=== PATIENT | female | born 1970 | race Caucasian/White ===

== ENCOUNTER → 2020-04-02 09:59 | Outpatient (BNVA) | payer MEDICAID, SELFPAY | PROVIDERS: PCP Internal Medicine; Visit Provider Urology | DX: N39.41 Urge incontinence (principal) | CPT/HCPCS: 51798; 99202 ==

== ENCOUNTER 2020-07-26 19:45 | Emergency (ER) | payer OTHER, SELFPAY ==
--- NOTE | ~2020-07-26 | US_ITS ---
EXAMINATION: US ABDOMEN COMPLETE CLINICAL INFORMATION: Right upper quadrant pain. COMPARISON: None TECHNIQUE: Real-time imaging of the abdominal viscera. FINDINGS: PANCREAS: Obscured by overlying bowel gas ABDOMINAL AORTA: The proximal, mid, and distal segments are normal in caliber. INFERIOR VENA CAVA: Visualized portions are normal. LIVER: Normal. The liver is normal in size. The liver contour is normal. Parenchymal echogenicity is normal. No focal hepatic lesion. There is no intrahepatic biliary duct dilatation seen. GALLBLADDER: Normal. The gallbladder is physiologically distended without evidence of stones, sludge, polyps, wall thickening or pericholecystic fluid. COMMON BILE DUCT: Normal in caliber measuring 0.2 cm in diameter. RIGHT KIDNEY: Normal. No hydronephrosis. No renal calculi or focal parenchymal lesions. The kidney measures 10.1 cm in maximum dimension. LEFT KIDNEY: Normal. No hydronephrosis. No renal calculi or focal parenchymal lesions. The kidney measures 9.3 cm in maximum dimension. SPLEEN: Normal. The spleen measures 8.1 cm in maximum dimension. FREE FLUID: None. US/US abdomen complete IMPRESSION: Unremarkable abdominal ultrasound
[2020-07-26 19:58] VITALS: BP 120/71; PULSE 74; RESP 18; TEMP 36.6; O2SAT 98; BMI 20.9
--- NOTE | 2020-07-26 20:54 | ED.NAVMDI ---
HPI - Nausea/Vomiting/Diarrhea General Chief complaint: Nausea/Vomiting/Diarrhea Stated complaint: nausea vomiting mild chest pain Time Seen by Provider: 07/26/20 20:54 Source: patient and EMS Mode of arrival: EMS Limitations: no limitations History of Present Illness MD elicited complaint: nausea, vomiting and abdominal pain Onset (ago): day(s) (started Sunday) Associated nausea: Yes Associated abdominal pain: Yes Location of pain: epigastric and RUQ Pain consistency: intermittent Severity: moderate Exacerbating factors: eating Relieving factors: none Context: other (started after eating greasy foods) Associated symptoms: loss of appetite, malaise and nausea/vomiting Related Data Previous Rx's Medication Instructions Recorded oxybutynin chloride 10 mg 10 mg PO DAILY #30 tab 04/02/20 tablet,extended release 24 hr famotidine [Pepcid] 20 mg PO DAILY PRN #30 tab 07/26/20 ondansetron 4 mg PO Q8H PRN #20 tab 07/26/20 Allergies Allergy/AdvReac Type Severity Reaction Status Date / Time aspirin [ASPIRIN] Allergy Unknown UNKNOWN Verified 05/24/20 10:20 ibuprofen [IBUPROFEN] Allergy Unknown NAUSEA & Verified 05/24/20 10:20 VOMITING citalopram AdvReac Unknown sleepiness Verified 05/24/20 10:20 Review of Systems Review of Systems: Constitutional : No Weight loss, No Fever, No Chills ENT/Mouth : No sore throat, No Rhinorrhea Eyes: No Swelling, No Redness Cardiovascular : No Chest Pain, No SOB, NoEdema Respiratory : No Cough, No Sputum, No Wheezing Gastrointestinal : Positive Nausea, Positive Vomiting, no Diarrhea, positive abdominal Pain, No Hematochezia, No Melena Genitourinary : No Dysuria, No Urinary Frequency, No Hematuria, No Urgency Musculoskeletal : No joint pain, No Myalgias, No Joint Swelling Skin : No Skin Lesions, No rash Neuro : No Weakness, No Numbness, No Dizziness, No Headache Psych : No Anxiety/Panic, No Depression Heme/Lymph: No Bruising, No Lymphadenopathy Endocrine : No Polyuria, No Polydipsia All other systems reviewed and are negative. Gastrointestinal: Gastrointestinal: Reports nausea PMFSH Past Medical History Attestation statement: The following information was validated with the patient. Medical History Anxiety Asthma Depression History of seizures IgA nephropathy Kidney disease Lumbar facet arthropathy Mental disability Urge incontinence Urgency of micturition Surgical History S/P excision of fibroadenoma of breast Family History Family History (Updated 05/24/20 @ 10:23 by Stan Mariee MD) Father No problems noted. Mother Hypertension Stroke Social History Social History Alcohol intake: never Smoking Status: Never smoker Advance Directives: No Advance Directives Information Provided: Yes Patient : No Physical Exam Vital Signs: Vital Signs: Last Vital Signs Temp 97.6 F 07/26/20 21:19 Pulse 63 07/26/20 21:19 Resp 20 07/26/20 21:19 BP 115/62 07/26/20 21:19 Pulse Ox 97 07/26/20 21:19 Body Mass Index 20.9 Appearance: Alert. Oriented X3. No acute distress. Eyes: Pupils equal, round and reactive to light. ENT: Pharynx normal. Neck: Normal inspection. Neck supple. CVS: Normal heart rate and rhythm. Pulses normal. Respiratory: No respiratory distress. Breath sounds normal. Abdomen: Soft and mild epigastric and RUQ ttp no rebound or guarding Skin: Skin warm and dry. Normal skin color. Normal skin turgor. Extremities: No lower extremity edema. No calf ttp Neuro: Oriented X 3. No motor deficit. No sensory deficit. Course Course Course Narrative: no WBC count, repeat abdominal exam benign, no RLQ pain on recheck currently tolerating julia elkin and crackers denies lower abdominal pain, back pain or urinary symptoms MDM - Nausea/Vomiting/Diarrhea MDM Narrative Medical decision making narrative: 49 yo feamle with hx of developmental delays, asthma, seizures here with 3 days of n/v and upper abdominal pain after eating greasy foods at this time will need labs, EKG, IVF, IV zofran/pepcid, US to evaluate GB dispo per results and findings. Lab Data Result diagrams: 07/26/20 21:28 07/26/20 21:28 Labs: Lab Results 07/26/20 07/26/20 07/26/20 Range/Units 21:28 21:28 21:28 WBC 9.1 (4.8-10.8) X10*3/uL RBC 4.67 (4.20-5.50) X10*6/uL Hgb 13.1 (12.0-16.0) g/dl Hct 40.7 (37-47) % MCV 87.2 (80-98) fL MCH 28.1 (27.0-33.0) pg MCHC 32.2 (31.0-35.0) g/dl RDW 13.2 (11.0-16.0) % Plt Count 264 (160-400) X10*3/uL MPV 9.4 (9.4-12.3) fL Immature Gran % (Auto) 0.3 (0.0-0.4) % Neut % (Auto) 81.0 H (45-73) % Lymph % (Auto) 13.1 L (20-40) % [place] % (Auto) 5.3 (2-11) % Eos % (Auto) 0.1 (0-4) % Baso % (Auto) 0.2 (0-2) % Lymph # (Auto) 1.2 (1.2-4.9) X10*3/uL [place] # (Auto) 0.5 (0.1-1.2) X10*3/uL Eos # (Auto) 0.0 (0.0-0.4) X10*3/uL Baso # (Auto) 0.0 (0.0-0.2) X10*3/uL Abs Immat Gran (auto) 0.03 (0.00-0.03) X10*3/uL Absolute Neuts (auto) 7.4 (2.0-8.3) X10*3/uL Absolute Nucleated RBC 0.000 (0.0-0.012) X10*3/uL Nucleated RBC % (auto) 0.0 (0.0-0.2) /100WBC Hold Blue Top SEE NOTE Sodium 140 (135-145) mmol/L Potassium 5.2 H (3.3-5.1) mmol/L Chloride 104 (96-108) mmol/L Carbon Dioxide 27 (22-29) mmol/L Anion Gap 14 (12-20) BUN 22 H (9-16) mg/dL Creatinine 0.73 (0.5-1.4) mg/dL Estim Creat Clear Calc 88.6 Estimated GFR > 60 Random Glucose 102 (60-115) mg/dL Calcium 9.9 (8.4-10.2) mg/dL Magnesium 2.1 (1.6-2.6) mg/dL Total Bilirubin 0.6 (0.0-1.0) mg/dL Direct Bilirubin 0.2 (0.0-0.5) mg/dL AST 15 (5-31) U/L ALT 12 (0-31) U/L Alkaline Phosphatase 59 (39-117) U/L Troponin I High Sens (<3.5-17.0) ng/L C-Reactive Protein 0.03 (< or = 0.50) mg/dL Total Protein 7.6 (6.5-8.0) g/dL Albumin 4.5 (3.5-5.0) g/dL Lipase 21 (8-78) U/L COVID-19 ([facility]) (Negative) COVID-19 Clin Com 07/26/20 07/26/20 Range/Units 21:28 21:28 WBC (4.8-10.8) X10*3/uL RBC (4.20-5.50) X10*6/uL Hgb (12.0-16.0) g/dl Hct (37-47) % MCV (80-98) fL MCH (27.0-33.0) pg MCHC (31.0-35.0) g/dl RDW (11.0-16.0) % Plt Count (160-400) X10*3/uL MPV (9.4-12.3) fL Immature Gran % (Auto) (0.0-0.4) % Neut % (Auto) (45-73) % Lymph % (Auto) (20-40) % [place] % (Auto) (2-11) % Eos % (Auto) (0-4) % Baso % (Auto) (0-2) % Lymph # (Auto) (1.2-4.9) X10*3/uL [place] # (Auto) (0.1-1.2) X10*3/uL Eos # (Auto) (0.0-0.4) X10*3/uL Baso # (Auto) (0.0-0.2) X10*3/uL Abs Immat Gran (auto) (0.00-0.03) X10*3/uL Absolute Neuts (auto) (2.0-8.3) X10*3/uL Absolute Nucleated RBC (0.0-0.012) X10*3/uL Nucleated RBC % (auto) (0.0-0.2) /100WBC Hold Blue Top Sodium (135-145) mmol/L Potassium (3.3-5.1) mmol/L Chloride (96-108) mmol/L Carbon Dioxide (22-29) mmol/L Anion Gap (12-20) BUN (9-16) mg/dL Creatinine (0.5-1.4) mg/dL Estim Creat Clear Calc Estimated GFR Random Glucose (60-115) mg/dL Calcium (8.4-10.2) mg/dL Magnesium (1.6-2.6) mg/dL Total Bilirubin (0.0-1.0) mg/dL Direct Bilirubin (0.0-0.5) mg/dL AST (5-31) U/L ALT (0-31) U/L Alkaline Phosphatase (39-117) U/L Troponin I High Sens < 3.5 (<3.5-17.0) ng/L C-Reactive Protein (< or = 0.50) mg/dL Total Protein (6.5-8.0) g/dL Albumin (3.5-5.0) g/dL Lipase (8-78) U/L COVID-19 ([facility]) Negative (Negative) COVID-19 Clin Com See Note ECG Data Attestation: I personally reviewed and interpreted this ECG as follows: ECG interpretation date: 07/26/20 ECG interpretation time: 21:34 Interpretation: Rate: 64 Rhythm: NSR [place]: normal Normal P waves. Normal [place]. Normal QRS complex. ST T wave : normal no [place] qTC: normal prior studies: normal no acute ischemia The study has been interpreted contemporaneously by me. . Discharge Plan Discharge Clinical Impression: Vomiting Qualifiers: Vomiting type: unspecified Vomiting Intractability: non-intractable Nausea presence: with nausea Qualified Code(s): R11.2 - Nausea with vomiting, unspecified Abdominal pain Qualifiers: Abdominal location: epigastric Qualified Code(s): R10.13 - Epigastric pain Patient Disposition: Home, Self-Care Instructions: Acute Nausea and Vomiting (ED), Abdominal Pain (ED) Additional Instructions: return to ED for any worsening symptoms or concerns Prescriptions: New famotidine [Pepcid] 20 mg tablet 20 mg PO DAILY PRN (Reason: abdominal discomfort) Qty: 30 RF: 0 ondansetron 4 mg tablet,disintegrating 4 mg PO Q8H PRN (Reason: nausea and vomiting) Qty: 20 RF: 0 No Action oxybutynin chloride 10 mg tablet extended release 24hr 10 mg PO DAILY Qty: 30 RF: 6 Referrals: Brisa Ackerman MD [Primary Care Provider] - 2 days (if not better) Stand Alone Forms: Work/School Release
--- NOTE | 2020-07-26 21:03 | ECG_ITS ---
Test Reason : VOMITING Blood Pressure : / mmHG Vent. Rate : 064 BPM Atrial Rate : 064 BPM P-R Int : 126 ms QRS Dur : 078 ms QT Int : 408 ms P-R-T Axes : 035 034 030 degrees QTc Int : 420 ms Sinus rhythm with Premature atrial complexes Otherwise normal ECG When compared with ECG of 24-SEP-2016 20:52, Premature atrial complexes are now Present T wave inversion no longer evident in Anterior leads Referred By: Barby Hernandez Electronically Signed By:DESMOND CORRALES MD
[2020-07-26 21:19] VITALS: BP 115/62; PULSE 63; RESP 20; TEMP 36.4; O2SAT 97
[2020-07-26] MEDS: 0.9 % Sodium Chloride 1,000 ML 999 ML IVCONT (21:27)
[2020-07-26 21:32] LABS: MANUAL DIFF FLAG NO
[2020-07-26 21:34] LABS: Basophils Percent Auto 0.2 % (0-2); Eosinophils Percent Auto 0.1 % (0-4); Hematocrit 40.7 % (37-47); Hemoglobin 13.1 g/dl (12.0-16.0); Imm Gran Abs Auto 0.03 X10*3/uL (0.00-0.03); Imm Gran Pct Auto 0.3 % (0.0-0.4); Lymphocytes Absolute Auto 1.2 X10*3/uL (1.2-4.9); Lymphocytes Percent Auto 13.1 % (20-40); Mean Corpuscular HGB Conc 32.2 g/dl (31.0-35.0); Mean Corpuscular Hemoglobin 28.1 pg (27.0-33.0); Mean Corpuscular Volume 87.2 fL (80-98); Mean Platelet Volume 9.4 fL (9.4-12.3); Monocytes Absolute Auto 0.5 X10*3/uL (0.1-1.2); Monocytes Percent Auto 5.3 % (2-11); Neutrophils Absolute Auto 7.4 X10*3/uL (2.0-8.3); Platelet Count 264 X10*3/uL (160-400); Red Blood Count 4.67 X10*6/uL (4.20-5.50); Red Cell Distribution Width 13.2 % (11.0-16.0); White Blood Count 9.1 X10*3/uL (4.8-10.8)
[2020-07-26 21:50] LABS: COVID-19 Test Negative (Negative); IDNOW Serial# 9DD0AD1C
[2020-07-26] MEDS: ondansetron HCL 4 MG/2 ML VIAL IVPUSH (22:02)
[2020-07-26] MEDS: Famotidine/PF 20 MG/2 ML VIAL IVPUSH (22:03)
[2020-07-26 22:09] LABS: Alanine Aminotransferase 12 U/L (0-31); Albumin Level 4.5 g/dL (3.5-5.0); Alkaline Phosphatase 59 U/L (39-117); Anion Gap 14 (12-20); Aspartate Amino Transferase 15 U/L (5-31); Bilirubin Direct 0.2 mg/dL (0.0-0.5); Bilirubin Total 0.6 mg/dL (0.0-1.0); Blood Urea Nitrogen 22 mg/dL (9-16); C Reactive Protein 0.03 mg/dL (< or = 0.50); Calcium 9.9 mg/dL (8.4-10.2); Carbon Dioxide 27 mmol/L (22-29); Chloride 104 mmol/L (96-108); Creatinine Clr Calc Pharmacy 88.6; Estimated Glomerular Filt Rate > 60; Glucose Random 102 mg/dL (60-115); Lipase 21 U/L (8-78); Magnesium 2.1 mg/dL (1.6-2.6); Potassium 5.2 mmol/L (3.3-5.1); Sodium 140 mmol/L (135-145); Total Protein 7.6 g/dL (6.5-8.0)
[2020-07-26 22:10] LABS: Troponin-I High Sensitivity < 3.5 ng/L (<3.5-17.0)
--- NOTE | 2020-07-26 23:24 | PC.NURSE ---
late entry. pt has been comfortable for most of ed visit. abd was always nontender. no vomiting. moist mm.
== END 2020-07-26 23:25 | disposition home or self-care (01) ==
PROVIDERS: Emergency Provider Emergency Medicine; PCP Internal Medicine
DX: R11.2 Nausea with vomiting, unspecified (principal); R10.13 Epigastric pain; R07.9 Chest pain, unspecified; Z20.822 Contact with and (suspected) exposure to COVID-19
CPT/HCPCS: 36415; 76700; 80048; 80076; 83690; 83735; 84484; 85025; 86140; 87635; 93005; 96361; 96374; 96375; 99284; J2405

== ENCOUNTER 2020-11-09 16:17 | Emergency (ER) | payer OTHER, SELFPAY ==
[2020-11-09 16:19] VITALS: BP 123/85; PULSE 106; RESP 16; TEMP 36.3; O2SAT 98; BMI 27.4
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
[2020-11-09] MEDS: cephALEXin 500 MG CAPSULE PO (18:34)
[2020-11-09] MEDS: Silver Sulfadiazine 1 % Cream 20 GM TUBE 1 APPL TOPICAL (18:34)
[2020-11-09] MEDS: Diphth,Pertus(ACell),Tet Adult 0.5 ML SYRINGE IM (18:34)
== END 2020-11-09 18:45 | disposition home or self-care (01) ==
PROVIDERS: Emergency Provider Emergency Medicine; PCP Internal Medicine
DX: T24.201A Burn of second degree of unspecified site of right lower limb, except ankle and foot, initial encounter (principal); T31.0 Burns involving less than 10% of body surface; X17.XXXA Contact with hot engines, machinery and tools, initial encounter; Y93.89 Activity, other specified; Y92.410 Unspecified street and highway as the place of occurrence of the external cause; Y99.9 Unspecified external cause status
CPT/HCPCS: 90471; 90715; 99284

== ENCOUNTER 2021-06-22 08:16 | Emergency (ER) | payer MEDICAID, SELFPAY ==
[2021-06-22 08:20] VITALS: BP 126/66; PULSE 94; RESP 16; TEMP 36.1; O2SAT 98; BMI 25.8
--- NOTE | 2021-06-22 08:25 | ED.BACK ---
HPI - Back Pain/Injury General Chief Complaint: Back Pain/Injury Stated Complaint: Lower back pain Time Seen by Provider: 06/22/21 08:24 Source: patient Mode of arrival: ambulatory Limitations: no limitations History of Present Illness MD elicited complaint: back pain and back injury Pertinent past history: prior back pain Onset (ago): day(s) (2) Timing: constant Severity: mild Similar Symptoms Previously: Yes Quality: dull and aching Location: lumbar spine Radiation: none Relieving factors: movement Context: trauma (slipped and fell forward taking out the trash) Associated symptoms: denies other symptoms Treatments prior to arrival: cold therapy, heat therapy, acetaminophen and other medications Work related injury: No Related Data Previous Rx's Medication Instructions Recorded oxybutynin chloride 10 mg 10 mg PO DAILY #30 tab 04/02/20 tablet,extended release 24 hr famotidine 20 mg tablet (Pepcid) 20 mg PO DAILY PRN #30 tab 07/26/20 ondansetron 4 mg disintegrating 4 mg PO Q8H PRN #20 tab 07/26/20 tablet acetaminophen 500 mg tablet 1,000 mg PO QID PRN #30 tab 11/09/20 cephalexin 500 mg tablet 500 mg PO QID 7 Days #28 tab 11/09/20 oxycodone 5 mg tablet 5 mg PO Q6H PRN #10 tab 11/09/20 silver sulfadiazine 1 % topical 1 appl TOPICAL BID 7 Days #50 g 11/09/20 cream (Silvadene) hydrocodone 5 mg-acetaminophen 325 1 tab PO Q6H PRN #8 tab 06/22/21 mg tablet Allergies Allergy/AdvReac Type Severity Reaction Status Date / Time aspirin [ASPIRIN] Allergy Unknown UNKNOWN Verified 11/09/20 17:27 ibuprofen [IBUPROFEN] Allergy Unknown NAUSEA & Verified 11/09/20 17:27 VOMITING citalopram AdvReac Unknown sleepiness Verified 11/09/20 17:27 Review of Systems Review of Systems: Constitutional : No Weight loss, No Fever, No Chills, ENT/Mouth : No Hearing loss, No Ear Pain, No Nasal Congestion, No Sinus Pain, No Hoarseness, No sore throat, No Rhinorrhea, No Swallowing Difficulty Cardiovascular : No Chest Pain, No SOB Respiratory : No Cough, No Dyspnea Gastrointestinal : No Nausea, No Vomiting, No Diarrhea, No abdominal Pain, No Hematochezia, No Melena Genitourinary : No Dysuria, No Urinary Frequency, No Hematuria, No Urinary Incontinence, Musculoskeletal : positive back pain Skin : No Skin Lesions, No rash Neuro : No Weakness, No Numbness, No Paresthesias, no loss of bowel or bladder incontinence, no saddle anesthesia [facility] Past Medical History Attestation statement: The following information was validated with the patient. Medical History Anxiety Asthma Depression History of seizures IgA nephropathy Kidney disease Lumbar facet arthropathy Mental disability Urge incontinence Urgency of micturition Surgical History S/P excision of fibroadenoma of breast Family History Family History (Updated 05/24/20 @ 10:23 by Stan Mariee MD) Father No problems noted. Mother Hypertension Stroke Social History Social History (Updated 06/22/21 @ 08:46 by Barby Hernandez DO) Alcohol intake: never Patient Tobacco Use Status: Never used Tobacco Physical Exam Vital Signs: Vital Signs: Last Vital Signs Temp 97.0 F 06/22/21 08:20 Pulse 94 06/22/21 08:20 Resp 16 06/22/21 08:20 BP 126/66 06/22/21 08:20 Pulse Ox 98 06/22/21 08:20 BMI result Body Mass Index 25.8 Appearance: Alert. Oriented X3. No acute distress. Eyes: Pupils equal, round and reactive to light. ENT: Pharynx normal. Neck: Normal inspection. Neck supple. CVS: Normal heart rate and rhythm. Pulses normal. Respiratory: No respiratory distress. Breath sounds normal. Abdomen: Soft and non-tender. Back: ttp along bilateral lower lumbar paraspinals no midline ttp Skin: Skin warm and dry. Normal skin color. Normal skin turgor. Extremities: No lower extremity edema. No calf ttp Neuro: Oriented X 3. No motor deficit. No sensory deficit. SILT inner thigh L5 5/5 bilaterally 2+ DTRs in achilles and patella MDM - Back Pain/Injury MDM Narrative Medical decision making narrative: 50 yo female hx of asthma, back pain fell 2 days ago forward here with low back pain no b/b incontinence no IVDA< no AC therapy - neuro intact. Tried OTC medications and patches will provide short term analgesia can follow up with PCP. No red flag symptoms. Discharge Plan Discharge Clinical Impression: Lumbar radiculopathy, Strain of lumbar region Patient Disposition: Home, Self-Care Instructions: Acute Low Back Pain (ED) Additional Instructions: return to ED for any worsening symptoms or concerns Prescriptions: New hydrocodone-acetaminophen 5-325 mg tablet 1 tab PO Q6H PRN (Reason: pain) Qty: 8 0RF No Action famotidine [Pepcid] 20 mg tablet 20 mg PO DAILY PRN (Reason: abdominal discomfort) Qty: 30 0RF ondansetron 4 mg tablet,disintegrating 4 mg PO Q8H PRN (Reason: nausea and vomiting) Qty: 20 0RF silver sulfadiazine [Silvadene] 1 % cream 1 appl topical BID 7 Days Qty: 50 0RF Rx Instructions: apply a 1.5 mm thickness cephalexin 500 mg tablet 500 mg PO QID 7 Days Qty: 28 0RF oxycodone 5 mg tablet 5 mg PO Q6H PRN (Reason: pain) Qty: 10 0RF Rx Instructions: Narcotic, no driving for 6 hours after taking acetaminophen 500 mg tablet 1,000 mg PO QID PRN (Reason: pain) Qty: 30 0RF oxybutynin chloride 10 mg tablet extended release 24hr 10 mg PO DAILY Qty: 30 6RF Referrals: Brisa Ackerman MD [Primary Care Provider] - 2 days (if not better)
--- NOTE | 2021-06-22 09:04 | PC.NURSE ---
PATIENT EVALUATED BY PROVIDER. PLAN IS FOR DC HOME WITH SCRIPT. PT AGREEABLE TO PLAN PT AMBULATORY, NEUROS INTACT. NO ACUTE DISTRESS NOTED. AMBULATING WITH NO DIFFICULTY IN ROOM
== END 2021-06-22 09:05 | disposition home or self-care (01) ==
LOC: HO.ED 08:52
PROVIDERS: Emergency Provider Emergency Medicine
DX: M54.16 Radiculopathy, lumbar region (principal); M54.50 Low back pain, unspecified
CPT/HCPCS: 99283

== ENCOUNTER 2021-07-21 08:32 | Outpatient (REF) | payer MEDICAID, SELFPAY ==
--- NOTE | ~2021-07-21 | XR_ITS ---
EXAMINATION: XR KNEE, RIGHT CLINICAL INFORMATION: Pain COMPARISON: 08/16/2018 TECHNIQUE: Four views of the right knee. FINDINGS: Bones and soft tissues are normal. No fracture or joint effusion. Alignment is anatomic. Joint spaces are well maintained. No abnormal soft tissue calcification. XR/XR knee RT 4V IMPRESSION: Normal right knee.
== END 2021-07-21 08:33 | disposition home or self-care (01) ==
LOC: HO.XRAY 08:32
PROVIDERS: Absent Provider Internal Medicine; PCP Internal Medicine; Visit Provider Emergency Medicine
DX: M25.561 Pain in right knee (principal)
CPT/HCPCS: 73564

== ENCOUNTER 2022-03-18 01:57 | Emergency (ER) | payer MEDICAID, SELFPAY ==
[2022-03-18 02:02] VITALS: BP 130/58; BP 138/68; BP 139/68; PULSE 72; PULSE 80; PULSE 81; RESP 16; RESP 18; TEMP 36.6; TEMP 36.8; O2SAT 100; O2SAT 98; BMI 26.6
[2022-03-18 02:26] LABS: MANUAL DIFF FLAG NO
[2022-03-18 02:27] LABS: Basophils Percent Auto 0.3 % (0-2); Eosinophils Absolute Auto 0.1 X10*3/uL (0.0-0.4); Hematocrit 40.4 % (37.0-47.0); Hemoglobin 13.1 g/dl (12.0-16.0); Imm Gran Abs Auto 0.04 X10*3/uL (0.00-0.03); Imm Gran Pct Auto 0.4 % (0.0-0.4); Lymphocytes Absolute Auto 3.5 X10*3/uL (1.2-4.9); Lymphocytes Percent Auto 36.1 % (20-40); Mean Corpuscular HGB Conc 32.4 g/dl (31.0-35.0); Mean Corpuscular Volume 86.3 fL (80.0-98.0); Mean Platelet Volume 9.5 fL (9.4-12.3); Monocytes Absolute Auto 0.7 X10*3/uL (0.1-1.2); Monocytes Percent Auto 7.1 % (2-11); Neutrophils Absolute Auto 5.4 x10*3/uL (2.0-8.3); Neutrophils Percent Auto 55.1 % (45-73); Platelet Count 325 X10*3/uL (160-400); Red Blood Count 4.68 X10*6/uL (4.20-5.50); Red Cell Distribution Width 13.3 % (11.0-16.0); White Blood Count 9.7 X10*3/uL (4.8-10.8)
[2022-03-18 02:28] LABS: Appearance Urine Turbid; Color Urine Yellow; Glucose Urine UA Negative (Negative); Leukocyte Esterase Urine Moderate (2+) (Negative); Nitrite Urine Positive (Negative); PH 5.5 (5.0-9.0); Specific Gravity - Urine 1.025 (1.005-1.025); UMIC TRIGGER UACC YES; Urine Blood Negative (Negative); Urine Ketones Trace mg/dL (Negative); Urine Protein Trace mg/dL (Neg-Trace)
[2022-03-18 02:40] LABS: Anion Gap 15 (12-20); Blood Urea Nitrogen 24 mg/dL (9-16); Calcium 9.9 mg/dL (8.4-10.2); Carbon Dioxide 23 mmol/L (22-29); Chloride 106 mmol/L (96-108); Creatinine Clr Calc Pharmacy 71.7; Estimated Glomerular Filt Rate > 60; Glucose Random 110 mg/dL (60-115); Potassium 3.4 mmol/L (3.3-5.1); Sodium 141 mmol/L (135-145)
[2022-03-18 02:41] LABS: Bacteria Urine 4+ (None Seen); Hyaline Casts Urine 0-2 /LPF (0-2); UACC Culture Trigger YES; WBC Urine >50 /HPF (0-5)
[2022-03-18] MEDS: cefTRIAXone sodium 1 GM in 0.9 % Sodium Chloride 50 ML IV (03:03)
--- NOTE | 2022-03-18 03:12 | ED.ABDPAIN ---
HPI - Abdominal Pain General Chief Complaint: Abdominal Pain Stated Complaint: Lt Flank Pain Time Seen by Provider: 03/18/22 02:35 Source: patient Mode of arrival: EMS History of Present Illness HPI narrative: 51-year-old female who presents via EMS with left lower quadrant/flank pain since last night patient reports that radiates into her leg and that is been worsening. She denies any nausea, vomiting, fever, chills and states her last bowel movement was yesterday. Related Data Previous Rx's Medication Instructions Recorded oxybutynin chloride 10 mg 10 mg PO DAILY #30 tabs 04/02/20 tablet,extended release 24 hr famotidine 20 mg tablet (Pepcid) 20 mg PO DAILY PRN abdominal 07/26/20 discomfort #30 tabs ondansetron 4 mg disintegrating 4 mg PO Q8H PRN nausea and 07/26/20 tablet vomiting #20 tabs acetaminophen 500 mg tablet 1,000 mg PO QID PRN pain #30 tabs 11/09/20 cephalexin 500 mg tablet 500 mg PO QID 7 days #28 tabs 11/09/20 oxycodone 5 mg tablet 5 mg PO Q6H PRN pain #10 tabs 11/09/20 silver sulfadiazine 1 % topical 1 appl topical BID 7 days #50 grams 11/09/20 cream (Silvadene) hydrocodone 5 mg-acetaminophen 325 1 tab PO Q6H PRN pain #8 tabs 06/22/ mg tablet cefdinir 300 mg capsule 300 mg PO BID 7 days #14 caps 03/18/22 Allergies Allergy/AdvReac Type Severity Reaction Status Date / Time aspirin [ASPIRIN] Allergy Unknown UNKNOWN Verified 11/09/20 17:27 ibuprofen [IBUPROFEN] Allergy Unknown NAUSEA & Verified 11/09/20 17:27 VOMITING citalopram AdvReac Unknown sleepiness Verified 11/09/20 17:27 Review of Systems Review of Systems Pertinent positives and negatives as stated in HPI PMFSH Past Medical History Source: nursing notes reviewed Medical History Anxiety Asthma Depression History of seizures IgA nephropathy Kidney disease Lumbar facet arthropathy Mental disability Urge incontinence Urgency of micturition Surgical History S/P excision of fibroadenoma of breast Family History Family History Father No problems noted. Mother Hypertension Stroke Social History Social History Alcohol intake: never Patient Tobacco Use Status: Never used Tobacco Advance Directives: No Advance Directives Information Provided: No Physical Exam ED Vital Signs: Vital Signs - 24 hr 03/18/22 02:02 03/18/22 02:02 Temperature 97.9 F 98.3 F Pulse Rate 81 80 Respiratory Rate 18 16 Blood Pressure 138/68 139/68 Pulse Oximetry 98 100 Oxygen Delivery Method Room Air Room Air BMI result Body Mass Index 26.6 VITAL SIGNS: Reviewed. GENERAL: Well developed, well nourished, in no acute distress. HEAD: Normocephalic/atraumatic EYES: PERRLA, EOMI EARS: Ext canals without abnormality OROPHARYNX: no oral lesions noted, posterior pharynx clear LUNGS: Normal breath sounds. No adventitious sounds or accessory muscle use. SpO2<100> CARDIOVASCULAR: Regular rate and rhythm without noted murmurs ABDOMEN: Soft, non-tender, non-distended with bowel sounds. MUSCULOSKELETAL: No tenderness, deformities, or effusions noted on gross inspection. EXTREMITIES: No cyanosis, clubbing or edema. SKIN: Inspection of the skin reveals no rashes NEUROLOGIC: Alert and oriented x 4. Strength and sensation to light touch were grossly intact x 4. Medical Decision Making Medical Decision Making [facility] Narrative: 41-year-old female with left flank pain. 0348: My review in interpretation of patient's workup is that she has a acute pyelonephritis, she is tolerating oral intake, she received initial antibiotics here in the emergency room and then was discharged on remaining course. Differential Diagnosis Differential Diagnoses: The differential diagnosis associated with the presentation includes Urine problem, intra-abdominal problem Lab Data [facility] Lab Attestation statement: I reviewed the patient's lab results. Please see the discussion above. 03/18/22 02:20 03/18/22 02:20 Labs: Lab Results 03/18/22 03/18/22 03/18/22 Range/Units 02:20 02:20 02:20 WBC 9.7 (4.8-10.8) X10*3/uL RBC 4.68 (4.20-5.50) X10*6/uL Hgb 13.1 (12.0-16.0) g/dl Hct 40.4 (37.0-47.0) % MCV 86.3 (80.0-98.0) fL MCH 28.0 (27.0-33.0) pg MCHC 32.4 (31.0-35.0) g/dl RDW 13.3 (11.0-16.0) % Plt Count 325 (160-400) X10*3/uL MPV 9.5 (9.4-12.3) fL Immature Gran % (Auto) 0.4 (0.0-0.4) % Neut % (Auto) 55.1 (45-73) % Lymph % (Auto) 36.1 (20-40) % [place] % (Auto) 7.1 (2-11) % Eos % (Auto) 1.0 (0-4) % Baso % (Auto) 0.3 (0-2) % Lymph # (Auto) 3.5 (1.2-4.9) X10*3/uL [place] # (Auto) 0.7 (0.1-1.2) X10*3/uL Eos # (Auto) 0.1 (0.0-0.4) X10*3/uL Baso # (Auto) 0.0 (0.0-0.2) X10*3/uL Abs Immat Gran (auto) 0.04 H (0.00-0.03) X10*3/uL Absolute Neuts (auto) 5.4 (2.0-8.3) x10*3/uL Absolute Nucleated RBC 0.000 (0.0-0.012) X10*3/uL Nucleated RBC % (auto) 0.0 (0.0-0.2) /100WBC Sodium 141 (135-145) mmol/L Potassium 3.4 D (3.3-5.1) mmol/L Chloride 106 (96-108) mmol/L Carbon Dioxide 23 (22-29) mmol/L Anion Gap 15 (12-20) BUN 24 H (9-16) mg/dL Creatinine 0.88 (0.5-1.4) mg/dL Estim Creat Clear Calc 71.7 Estimated GFR > 60 Random Glucose 110 (60-115) mg/dL Calcium 9.9 (8.4-10.2) mg/dL Urine Color Yellow Urine Appearance Turbid Urine pH 5.5 (5.0-9.0) Ur Specific [place] 1.025 (1.005-1.025) Urine Protein Trace (Neg-Trace) mg/dL Urine Glucose (UA) Negative (Negative) mg/dL Urine Ketones Trace (Negative) mg/dL Urine Blood Negative (Negative) Urine Nitrite Positive H (Negative) Ur Leukocyte Esterase Moderate (2+) H (Negative) Urine RBC 3-5 H (0-2) /HPF Urine WBC >50 H (0-5) /HPF Ur Squamous Epith Cells 3-5 (0-2) /HPF Urine Bacteria 4+ (None Seen) Hyaline Casts 0-2 (0-2) /LPF Medications Administered Discontinued Medications Generic Name Dose Route Start Last Admin Trade Name Freq PRN Reason Stop Dose Admin Ceftriaxone Sodium 1 gm/ 50 mls @ 100 mls/hr 03/18/22 02:50 03/18/22 03:03 Sodium Chloride IV 03/18/22 03:19 100 mls/hr ONCE ONE Administration Discharge Plan Discharge Clinical Impression: Pyelonephritis Patient Disposition: Home, Self-Care Instructions: Kidney Infection (ED) Additional Instructions: 1. Complete todo el curso de antibi?ticos seg?n lo prescrito. 2. Recomiende Tylenol de venta allan para el dolor. 3. Seguimiento con el proveedor de atenci?n primaria el . Regrese a la balbir de emergencias si los s?ntomas empeoran. 1. Please complete the entire course of antibiotics as prescribed. 2. Recommend [id number] Tylenol for pain. 3. Follow-up with primary care provider Sunday. Return to the ER for worsening symptoms. Prescriptions: New cefdinir 300 mg capsule 300 mg PO BID 7 Days Qty: 14 0RF No Action famotidine [Pepcid] 20 mg tablet 20 mg PO DAILY PRN (Reason: abdominal discomfort) Qty: 30 0RF ondansetron 4 mg tablet,disintegrating 4 mg PO Q8H PRN (Reason: nausea and vomiting) Qty: 20 0RF silver sulfadiazine [Silvadene] 1 % cream 1 appl topical BID 7 Days Qty: 50 0RF Rx Instructions: apply a 1.5 mm thickness cephalexin 500 mg tablet 500 mg PO QID 7 Days Qty: 28 0RF oxycodone 5 mg tablet 5 mg PO Q6H PRN (Reason: pain) Qty: 10 0RF Rx Instructions: Narcotic, no driving for 6 hours after taking acetaminophen 500 mg tablet 1,000 mg PO QID PRN (Reason: pain) Qty: 30 0RF hydrocodone-acetaminophen 5-325 mg tablet 1 tab PO Q6H PRN (Reason: pain) Qty: 8 0RF oxybutynin chloride 10 mg tablet extended release 24hr 10 mg PO DAILY Qty: 30 6RF Referrals: Anuja Borjas MD [Primary Care Provider] - Print Language: [place]
[2022-03-18] MEDS: Acetaminophen 325 MG TABLET 975 MG PO (04:08)
== END 2022-03-18 04:10 | disposition home or self-care (01) ==
PROVIDERS: Emergency Provider Student in an Organized Health Care Education/Training Program; PCP Internal Medicine
DX: N12 Tubulo-interstitial nephritis, not specified as acute or chronic (principal)
CPT/HCPCS: 36415; 80048; 81001; 85025; 87086; 87088; 87186; 96374; 99283; 99284; J0696

== ENCOUNTER 2022-06-22 14:44 | Emergency (ER) | payer MEDICAID, SELFPAY ==
[2022-06-22 14:52] VITALS: BP 138/90; PULSE 88; O2SAT 98
--- NOTE | 2022-06-22 15:18 | ED.BACK ---
HPI - Back Pain/Injury General Chief Complaint: Urogenital-Female Stated Complaint: LOW BACK PAIN SINCE T-1,NO RECENT INJURY PER EMS Related Data Previous Rx's Medication Instructions Recorded oxybutynin chloride 10 mg 10 mg PO DAILY #30 tabs 04/02/20 tablet,extended release 24 hr famotidine 20 mg tablet (Pepcid) 20 mg PO DAILY PRN abdominal 07/26/20 discomfort #30 tabs ondansetron 4 mg disintegrating 4 mg PO Q8H PRN nausea and 07/26/20 tablet vomiting #20 tabs acetaminophen 500 mg tablet 1,000 mg PO QID PRN pain #30 tabs 11/09/20 cephalexin 500 mg tablet 500 mg PO QID 7 days #28 tabs 11/09/20 oxycodone 5 mg tablet 5 mg PO Q6H PRN pain #10 tabs 11/09/20 silver sulfadiazine 1 % topical 1 appl topical BID 7 days #50 grams 11/09/20 cream (Silvadene) hydrocodone 5 mg-acetaminophen 325 1 tab PO Q6H PRN pain #8 tabs 06/22/21 mg tablet cefdinir 300 mg capsule 300 mg PO BID 7 days #14 caps 03/18/22 Allergies Allergy/AdvReac Type Severity Reaction Status Date / Time aspirin [ASPIRIN] Allergy Unknown UNKNOWN Verified 06/22/22 15:19 ibuprofen [IBUPROFEN] Allergy Unknown NAUSEA & Verified 06/22/22 15:19 VOMITING citalopram AdvReac Unknown sleepiness Verified 06/22/22 15:19 PMFSH Past Medical History Medical History Anxiety Asthma Depression History of seizures IgA nephropathy Kidney disease Lumbar facet arthropathy Mental disability Urge incontinence Urgency of micturition Surgical History S/P excision of fibroadenoma of breast Family History Family History Father No problems noted. Mother Hypertension Stroke Social History Social History Alcohol intake: never Patient Tobacco Use Status: Never used Tobacco Advance Directives: No Advance Directives Information Provided: No Physical Exam Vital Signs: Vital Signs: Last Vital Signs Temp 96.8 F 06/22/22 15:19 Pulse 84 06/22/22 15:19 Resp 18 06/22/22 15:19 BP 115/80 06/22/22 15:19 Pulse Ox 97 06/22/22 15:19 O2 Del Method Room Air 06/22/22 15:19 BMI result Body Mass Index 26.6 Course Course Course Narrative: This is a rapid medical exam. deferred additional HPI, ROS, PE to primary provider. 51 yo female with history of asthma, h/o kidney infection, anxiety, chronic back pain here with lower back pain x2 days, arrives in wheelchair via EMS and states she cant walk d/t pain. +dysuria with foul odor. No longer has her menses. Will check labs, UA VSS Medical Decision Making Lab Data 06/22/22 15:53 06/22/22 15:53 Labs: Lab Results 06/22/22 06/22/22 Range/Units 15:53 15:53 WBC 9.3 (4.8-10.8) X10*3/uL RBC 4.40 (4.20-5.50) X10*6/uL Hgb 12.5 (12.0-16.0) g/dl Hct 38.3 (37.0-47.0) % MCV 87.0 (80.0-98.0) fL MCH 28.4 (27.0-33.0) pg MCHC 32.6 (31.0-35.0) g/dl RDW 13.6 (11.0-16.0) % Plt Count 251 (160-400) X10*3/uL MPV 9.2 L (9.4-12.3) fL Immature Gran % (Auto) 0.3 (0.0-0.4) % Neut % (Auto) 73.0 (45-73) % Lymph % (Auto) 19.2 L (20-40) % [place] % (Auto) 6.8 (2-11) % Eos % (Auto) 0.4 (0-4) % Baso % (Auto) 0.3 (0-2) % Lymph # (Auto) 1.8 (1.2-4.9) X10*3/uL [place] # (Auto) 0.6 (0.1-1.2) X10*3/uL Eos # (Auto) 0.0 (0.0-0.4) X10*3/uL Baso # (Auto) 0.0 (0.0-0.2) X10*3/uL Abs Immat Gran (auto) 0.03 (0.00-0.03) X10*3/uL Absolute Neuts (auto) 6.8 (2.0-8.3) x10*3/uL Absolute Nucleated RBC 0.000 (0.0-0.012) X10*3/uL Nucleated RBC % (auto) 0.0 (0.0-0.2) /100WBC Sodium 141 (135-145) mmol/L Potassium 4.1 D (3.3-5.1) mmol/L Chloride 107 (96-108) mmol/L Carbon Dioxide 28 (22-29) mmol/L Anion Gap 10 L (12-20) BUN 18 H (9-16) mg/dL Creatinine 0.79 (0.5-1.4) mg/dL Estim Creat Clear Calc 85.9 Estimated GFR > 60 Random Glucose 114 (60-115) mg/dL Calcium 9.2 D (8.4-10.2) mg/dL Discharge Plan Discharge Clinical Impression: Back pain Patient Disposition: Elopement Prescriptions: No Action famotidine [Pepcid] 20 mg tablet 20 mg PO DAILY PRN (Reason: abdominal discomfort) Qty: 30 0RF ondansetron 4 mg tablet,disintegrating 4 mg PO Q8H PRN (Reason: nausea and vomiting) Qty: 20 0RF silver sulfadiazine [Silvadene] 1 % cream 1 appl topical BID 7 Days Qty: 50 0RF Rx Instructions: apply a 1.5 mm thickness cephalexin 500 mg tablet 500 mg PO QID 7 Days Qty: 28 0RF oxycodone 5 mg tablet 5 mg PO Q6H PRN (Reason: pain) Qty: 10 0RF Rx Instructions: Narcotic, no driving for 6 hours after taking acetaminophen 500 mg tablet 1,000 mg PO QID PRN (Reason: pain) Qty: 30 0RF hydrocodone-acetaminophen 5-325 mg tablet 1 tab PO Q6H PRN (Reason: pain) Qty: 8 0RF cefdinir 300 mg capsule 300 mg PO BID 7 Days Qty: 14 0RF oxybutynin chloride 10 mg tablet extended release 24hr 10 mg PO DAILY Qty: 30 6RF Discharge Date/Time: 06/22/22 20:43
[2022-06-22 15:19] VITALS: BP 115/80; PULSE 84; RESP 18; TEMP 36; O2SAT 97; BMI 26.6
[2022-06-22 15:58] LABS: MANUAL DIFF FLAG NO
[2022-06-22 16:01] LABS: Basophils Percent Auto 0.3 % (0-2); Eosinophils Percent Auto 0.4 % (0-4); Hematocrit 38.3 % (37.0-47.0); Hemoglobin 12.5 g/dl (12.0-16.0); Imm Gran Abs Auto 0.03 X10*3/uL (0.00-0.03); Imm Gran Pct Auto 0.3 % (0.0-0.4); Lymphocytes Absolute Auto 1.8 X10*3/uL (1.2-4.9); Lymphocytes Percent Auto 19.2 % (20-40); Mean Corpuscular HGB Conc 32.6 g/dl (31.0-35.0); Mean Corpuscular Hemoglobin 28.4 pg (27.0-33.0); Mean Platelet Volume 9.2 fL (9.4-12.3); Monocytes Absolute Auto 0.6 X10*3/uL (0.1-1.2); Monocytes Percent Auto 6.8 % (2-11); Neutrophils Absolute Auto 6.8 x10*3/uL (2.0-8.3); Platelet Count 251 X10*3/uL (160-400); Red Cell Distribution Width 13.6 % (11.0-16.0); White Blood Count 9.3 X10*3/uL (4.8-10.8)
[2022-06-22 16:18] LABS: Anion Gap 10 (12-20); Blood Urea Nitrogen 18 mg/dL (9-16); Calcium 9.2 mg/dL (8.4-10.2); Carbon Dioxide 28 mmol/L (22-29); Chloride 107 mmol/L (96-108); Creatinine Clr Calc Pharmacy 85.9; Estimated Glomerular Filt Rate > 60; Glucose Random 114 mg/dL (60-115); Potassium 4.1 mmol/L (3.3-5.1); Sodium 141 mmol/L (135-145)
== END 2022-06-22 20:43 | disposition left against medical advice (07) ==
PROVIDERS: Nurse Practitioner Family; Emergency Provider Emergency Medicine
DX: M54.50 Low back pain, unspecified (principal); Z79.899 Other long term (current) drug therapy
CPT/HCPCS: 36415; 80048; 85025; 99281; 99283

== ENCOUNTER 2023-02-08 03:24 | Emergency (ER) | payer MEDICAID, SELFPAY ==
--- NOTE | ~2023-02-08 | XR_ITS ---
EXAMINATION: XR CHEST CLINICAL INFORMATION: Cough COMPARISON: 09/24/2016 TECHNIQUE: 2 views of the chest were obtained. FINDINGS: The lungs are clear with no focal consolidation. No evidence of pneumothorax, pulmonary edema, or pleural effusions. The cardiomediastinal silhouette is unremarkable. No acute osseous findings. XR/XR chest 2V IMPRESSION: No acute cardiopulmonary findings.
[2023-02-08 03:38] VITALS: BP 128/82; PULSE 79; RESP 18; TEMP 36.8; O2SAT 98
[2023-02-08 03:46] VITALS: BP 128/82; PULSE 79; RESP 18; TEMP 36.8; O2SAT 98; BMI 26.9
[2023-02-08 04:22] LABS: Influenza A PCR NEGATIVE (Negative); Influenza B PCR NEGATIVE (Negative); Resp Syncy Virus RNA Qual PCR NEGATIVE (Negative); SARS COV2 PCR INHOUSE NEGATIVE (Negative)
--- NOTE | 2023-02-08 05:04 | ED_ITS ---
HPI - URI/Sore Throat General Chief Complaint: Upper Respiratory Symptoms Stated Complaint: flu like symp Time Seen by Provider: 02/08/23 04:19 Source: patient Mode of arrival: ambulatory History of Present Illness HPI Narrative: 52-year-old female who presents with cough, congestion, body aches for 1 week. Related Data Previous Rx's Medication Instructions Recorded oxybutynin chloride 10 mg 10 mg PO DAILY #30 tabs 04/02/20 tablet,extended release 24 hr famotidine 20 mg tablet (Pepcid) 20 mg PO DAILY PRN abdominal 07/26/20 discomfort #30 tabs ondansetron 4 mg disintegrating 4 mg PO Q8H PRN nausea and 07/26/20 tablet vomiting #20 tabs acetaminophen 500 mg tablet 1,000 mg (2 x 500 mg) PO QID PRN 11/09/20 pain #30 tabs cephalexin 500 mg tablet 500 mg PO QID 7 days #28 tabs 11/09/20 oxycodone 5 mg tablet 5 mg PO Q6H PRN pain #10 tabs 11/09/20 silver sulfadiazine 1 % topical 1 appl topical BID 7 days #50 grams 11/09/20 cream (Silvadene) hydrocodone 5 mg-acetaminophen 325 1 tab PO Q6H PRN pain #8 tabs 06/22/21 mg tablet cefdinir 300 mg capsule 300 mg PO BID 7 days #14 caps 03/18/22 Allergies Allergy/AdvReac Type Severity Reaction Status Date / Time aspirin [ASPIRIN] Allergy Unknown UNKNOWN Verified 06/22/22 15:19 ibuprofen [IBUPROFEN] Allergy Unknown NAUSEA & Verified 06/22/22 15:19 VOMITING citalopram AdvReac Unknown sleepiness Verified 06/22/22 15:19 Review of Systems Review of Systems: Pertinent positives and negatives as stated in HPI PMFSH Past Medical History Source: nursing notes reviewed Medical History History of seizures Mental disability Asthma IgA nephropathy Depression Anxiety Urgency of micturition Urge incontinence Lumbar facet arthropathy Kidney disease Surgical History S/P excision of fibroadenoma of breast Family History Family History Father No problems noted. Mother Hypertension Stroke Social History Social History Alcohol intake: never Patient Tobacco Use Status: Never used Tobacco Smoked in Last 30 Days: No Use of substances other than those prescribed or required for medical reasons: No Advance Directives: No Advance Directives Information Provided: No Patient : No Physical Exam Vital Signs: Vital Signs: Last Vital Signs Temp 97.6 F 02/08/23 05:14 Pulse 72 02/08/23 05:14 Resp 14 02/08/23 05:14 BP 125/83 02/08/23 05:14 Pulse Ox 100 02/08/23 05:14 O2 Del Method Room Air 02/08/23 05:14 BMI result Body Mass Index 26.9 VITAL SIGNS: Reviewed. GENERAL: Well developed, well nourished, in no acute distress. HEAD: Normocephalic/atraumatic EYES: PERRLA, EOMI EARS: Ext canals without abnormality, TMs non-bulging and non-erythematous NOSE: Nares patent bilateral OROPHARYNX: no oral lesions noted, posterior pharynx clear and non-erythematous without noted tonsillar enlargement/erythema/exudates NECK: Supple, no adenopathy LUNGS: Normal breath sounds. No adventitious sounds or accessory muscle use. SpO2<100> CARDIOVASCULAR: Regular rate and rhythm without noted murmurs ABDOMEN: Soft, non-tender, non-distended with bowel sounds. MUSCULOSKELETAL: No tenderness, deformities, or effusions noted on gross inspection. EXTREMITIES: No cyanosis, clubbing or edema. SKIN: Inspection of the skin reveals no rashes NEUROLOGIC: Alert and oriented x 4. Strength and sensation to light touch were grossly intact x 4. Medical Decision Making Medical Decision Making [facility] Narrative: 52-year-old female with history and clinical presentation, DDX: Viral illness, pneumonia. I reviewed all investigations and viral testing is negative for influenza/RSV/COVID. Chest x-ray is negative for infiltrate and otherwise my interpretation is in agreement with radiology's impression. My interpretation is that patient likely has a resolving viral illness. Differential Diagnosis Differential Diagnoses: The differential diagnosis associated with the presentation includes Please see the discussion above Admission/Observation Consideration of admission/observation: Escalation of care including admission/observation considered Please see the discussion above Lab Data [facility] Lab Attestation statement: I reviewed the patient's lab results. Please see the discussion above Labs: Lab Results 02/08/23 Range/Units 03:41 Influenza Type A (PCR) NEGATIVE (Negative) Influenza Type B (PCR) NEGATIVE (Negative) RSV RNA Qual (PCR) NEGATIVE (Negative) SARS-CoV-2 RNA (RT-PCR) NEGATIVE (Negative) Radiology Impression Discussion of test interpretation with radiology: I have reviewed the radiologist's reading. Radiologist Impression: Please see the discussion above External Record Review External record reviewed: Outpatient record, Prior outpatient labs and Prior outpatient radiology Discharge Plan Discharge Clinical Impression: Viral syndrome Patient Disposition: Home, Self-Care Instructions: Viral Syndrome (ED) Additional Instructions: Resume all home medications as prescribed. Recommend [id number] Tylenol/ibuprofen as needed for body aches. Follow-up with primary care doctor next 1-2 days. Return to the ER for any worsening symptoms. Prescriptions: No Action famotidine [Pepcid] 20 mg tablet 20 mg PO DAILY PRN (Reason: abdominal discomfort) Qty: 30 0RF ondansetron 4 mg tablet,disintegrating 4 mg PO Q8H PRN (Reason: nausea and vomiting) Qty: 20 0RF silver sulfadiazine [Silvadene] 1 % cream 1 appl topical BID 7 Days Qty: 50 0RF Rx Instructions: apply a 1.5 mm thickness cephalexin 500 mg tablet 500 mg PO QID 7 Days Qty: 28 0RF oxycodone 5 mg tablet 5 mg PO Q6H PRN (Reason: pain) Qty: 10 0RF Rx Instructions: Narcotic, no driving for 6 hours after taking acetaminophen 500 mg tablet 1,000 mg PO QID PRN (Reason: pain) Qty: 30 0RF hydrocodone-acetaminophen 5-325 mg tablet 1 tab PO Q6H PRN (Reason: pain) Qty: 8 0RF cefdinir 300 mg capsule 300 mg PO BID 7 Days Qty: 14 0RF oxybutynin chloride 10 mg tablet extended release 24hr 10 mg PO DAILY Qty: 30 6RF Referrals: [facility] [Primary Care Provider] - Interventions: ED Discharge Assessment Last Done: 02/08/23 05:19 Discharge Date/Time: 02/08/23 05:20
[2023-02-08 05:14] VITALS: BP 125/83; PULSE 72; RESP 14; TEMP 36.4; O2SAT 100
== END 2023-02-08 05:20 | disposition home or self-care (01) ==
PROVIDERS: Emergency Provider Student in an Organized Health Care Education/Training Program
DX: B34.9 Viral infection, unspecified (principal); R05.9 Cough, unspecified; M79.10 Myalgia, unspecified site; Z20.822 Contact with and (suspected) exposure to COVID-19; Z20.828 Contact with and (suspected) exposure to other viral communicable diseases
CPT/HCPCS: 0241U; 71046; 99283; 99284

== ENCOUNTER 2023-04-12 19:33 | Emergency (ER) | payer MEDICAID, SELFPAY ==
[2023-04-12 19:45] VITALS: BP 148/78; PULSE 76; RESP 20; TEMP 36.4; O2SAT 98; BMI 25.7
[2023-04-12 20:27] LABS: MANUAL DIFF FLAG NO
[2023-04-12 20:33] LABS: Basophils Percent Auto 0.2 % (0-2); Eosinophils Absolute Auto 0.1 X10*3/uL (0.0-0.4); Eosinophils Percent Auto 0.6 % (0-4); Hematocrit 37.3 % (37.0-47.0); Hemoglobin 12.2 g/dl (12.0-16.0); Imm Gran Abs Auto 0.03 X10*3/uL (0.00-0.03); Imm Gran Pct Auto 0.3 % (0.0-0.4); Lymphocytes Absolute Auto 2.6 X10*3/uL (1.2-4.9); Lymphocytes Percent Auto 25.3 % (20-40); Mean Corpuscular HGB Conc 32.7 g/dl (31.0-35.0); Mean Corpuscular Hemoglobin 27.7 pg (27.0-33.0); Mean Corpuscular Volume 84.6 fL (80.0-98.0); Mean Platelet Volume 9.4 fL (9.4-12.3); Monocytes Absolute Auto 0.7 X10*3/uL (0.1-1.2); Monocytes Percent Auto 7.3 % (2-11); Neutrophils Absolute Auto 6.7 x10*3/uL (2.0-8.3); Neutrophils Percent Auto 66.3 % (45-73); Platelet Count 309 X10*3/uL (160-400); Red Blood Count 4.41 X10*6/uL (4.20-5.50); Red Cell Distribution Width 13.4 % (11.0-16.0); White Blood Count 10.1 X10*3/uL (4.8-10.8)
[2023-04-12 20:48] LABS: Alanine Aminotransferase 10 U/L (0-31); Albumin Level 4.3 g/dL (3.5-5.0); Alkaline Phosphatase 58 U/L (39-117); Anion Gap 14 (12-20); Aspartate Amino Transferase 15 U/L (5-31); Bilirubin Total 0.3 mg/dL (0.0-1.0); Blood Urea Nitrogen 14 mg/dL (9-16); Calcium 9.4 mg/dL (8.4-10.2); Carbon Dioxide 24 mmol/L (22-29); Chloride 107 mmol/L (96-108); Creatinine Clr Calc Pharmacy 81.5; Estimated Glomerular Filt Rate > 60; Glucose Random 99 mg/dL (60-115); Potassium 3.6 mmol/L (3.3-5.1); Sodium 141 mmol/L (135-145); Total Protein 7.6 g/dL (6.5-8.0)
== END 2023-04-12 23:49 | disposition left against medical advice (07) ==
PROVIDERS: Emergency Provider Emergency Medicine
DX: R11.2 Nausea with vomiting, unspecified (principal); R19.7 Diarrhea, unspecified
CPT/HCPCS: 36415; 80053; 85025; 99281; 99283

== ENCOUNTER 2024-01-06 14:21 | Emergency (ER) | payer MEDICAID, SELFPAY ==
--- NOTE | ~2024-01-06 | CT_ITS ---
EXAMINATION: CT ABDOMEN AND PELVIS WITHOUT CONTRAST CLINICAL INFORMATION: Right flank pain COMPARISON: CT abdomen pelvis 04/19/2016 TECHNIQUE: Multidetector volumetric imaging was performed from the superior aspect of the liver through the pubic symphysis. Sagittal and coronal reformatted images were obtained on the technologist's workstation. This CT examination was performed using dose optimization techniques as appropriate, variously including the following: *Automated exposure control *Adjustment of mA and/or kV according to patient size (this includes techniques or standardized protocols for targeted exams where dose is matched to indication/reason for exam; i.e. extremities or head) *Use of iterative reconstruction technique DLP: 384 mGy-cm FINDINGS: LUNG BASES: Heart size enlarged. There is no pericardial or pleural effusion. The lung bases are clear. LIVER, GALLBLADDER, AND BILIARY TREE: The liver is normal in size, shape, and attenuation. No focal hepatic lesion or biliary ductal dilatation is present. The gallbladder is unremarkable with no evidence of radiopaque gallstones, gallbladder wall thickening, or obvious pericholecystic inflammatory changes. PANCREAS: Unremarkable. SPLEEN: Unremarkable. ADRENAL GLANDS: Unremarkable. KIDNEYS AND URETERS: The kidneys are normal in size, shape, and attenuation. No hydronephrosis, hydroureter, or calculi seen. No perinephric stranding. BLADDER: Unremarkable. GASTROINTESTINAL TRACT: There is scattered stool and gas seen throughout the colon without distention. The small bowel loops are normal caliber. Appendix is normal caliber. The stomach is nondistended . No free air or free fluid seen. ABDOMINAL WALL: No significant hernia is appreciated. LYMPH NODES: Normal. VASCULAR: Unremarkable. PELVIC VISCERA: Uterus is midline. No adnexal mass or free fluid seen. Scattered phleboliths are seen throughout the pelvis. OSSEOUS STRUCTURES: No aggressive lytic or sclerotic process seen CT/CT abdomen pelvis wo IV con IMPRESSION: 1. No acute intra-abdominal process seen. 2. Mild constipation. Fleischner guidelines were followed. Electronically signed by: Sajan Merchant MD 01/06/2024 05:41 PM EDT
[2024-01-06 14:27] VITALS: BP 122/70; PULSE 92; O2SAT 99
[2024-01-06 14:36] VITALS: BP 152/87; PULSE 87; RESP 16; TEMP 36.9; O2SAT 98; BMI 24.8
[2024-01-06 15:11] LABS: MANUAL DIFF FLAG NO
[2024-01-06 15:12] LABS: Basophils Percent Auto 0.3 % (0-2); Eosinophils Absolute Auto 0.1 X10*3/uL (0.0-0.4); Eosinophils Percent Auto 0.8 % (0-4); Hematocrit 38.9 % (37.0-47.0); Hemoglobin 12.7 g/dl (12.0-16.0); Imm Gran Abs Auto 0.02 X10*3/uL (0.00-0.03); Imm Gran Pct Auto 0.3 % (0.0-0.4); Lymphocytes Absolute Auto 1.7 X10*3/uL (1.2-4.9); Lymphocytes Percent Auto 26.5 % (20-40); Mean Corpuscular HGB Conc 32.6 g/dl (31.0-35.0); Mean Corpuscular Hemoglobin 28.5 pg (27.0-33.0); Mean Corpuscular Volume 87.2 fL (80.0-98.0); Mean Platelet Volume 9.2 fL (9.4-12.3); Monocytes Absolute Auto 0.4 X10*3/uL (0.1-1.2); Monocytes Percent Auto 6.6 % (2-11); Neutrophils Absolute Auto 4.2 x10*3/uL (2.0-8.3); Neutrophils Percent Auto 65.5 % (45-73); Platelet Count 276 X10*3/uL (160-400); Red Blood Count 4.46 X10*6/uL (4.20-5.50); Red Cell Distribution Width 14.2 % (11.0-16.0); White Blood Count 6.5 X10*3/uL (4.8-10.8)
[2024-01-06 15:28] LABS: Alanine Aminotransferase 12 U/L (0-31); Albumin Level 4.3 g/dL (3.5-5.0); Alkaline Phosphatase 54 U/L (39-117); Anion Gap 13 (12-20); Aspartate Amino Transferase 16 U/L (5-31); Bilirubin Total 0.4 mg/dL (0.0-1.0); Blood Urea Nitrogen 12 mg/dL (9-16); Calcium 9.5 mg/dL (8.4-10.2); Carbon Dioxide 28 mmol/L (22-29); Chloride 105 mmol/L (96-108); Creatinine Clr Calc Pharmacy 69.2; Estimated Glomerular Filt Rate > 60; Glucose Random 96 mg/dL (60-115); Magnesium 1.9 mg/dL (1.6-2.6); Potassium 3.6 mmol/L (3.3-5.1); Sodium 142 mmol/L (135-145); Total Protein 7.2 g/dL (6.5-8.0)
[2024-01-06 15:35] LABS: HCG Quantitative 5 mIU/mL
[2024-01-06 15:59] VITALS: BP 127/79; PULSE 75; RESP 18; TEMP 36.9; O2SAT 98
[2024-01-06 16:55] LABS: Appearance Urine Cloudy; Bacteria Urine 4+ (None Seen); Color Urine Red; Glucose Urine UA Negative (Negative); Hyaline Casts Urine 0-2 /LPF (0-2); Leukocyte Esterase Urine Small (1+) (Negative); Nitrite Urine Positive (Negative); RBC Urine >20 /HPF (0-2); Specific Gravity - Urine 1.015 (1.005-1.025); Squamous Epithelial Cell Urine 0-2 /HPF (0-2); UACC Culture Trigger YES; UMIC TRIGGER UACC YES; Urine Blood Large (3+) (Negative); Urine Ketones Negative (Negative); Urine Protein 30 (1+) mg/dL (Neg-Trace)
--- NOTE | 2024-01-06 17:00 | ED.FEMALEGU ---
HPI - Female Genitourinary General Chief complaint: Urogenital-Female Stated complaint: HEMATURIA ABDOMAL PAIN Time Seen by Provider: 01/06/24 16:08 Source: patient Limitations: other (Mental disability) History of Present Illness ED Provider: Yamile Valle PA-C HPI Narrative: 53-year-old female with a history of seizure disorder, mental disability, asthma, and known lumbar arthritis, presents with right flank pain x3 days. Patient unable to describe the nature of her discomfort, but it is nonradiating. Associated dysuria and gross hematuria. Denies nausea, vomiting, or fever. Patient does not have a known history of renal stones. Related Data Previous Rx's ?Medication ?Instructions ?Recorded oxybutynin chloride 10 mg 10 mg PO DAILY #30 tabs 04/02/20 tablet,extended release 24 hr famotidine 20 mg tablet (Pepcid) 20 mg PO DAILY PRN abdominal 07/26/20 discomfort #30 tabs ondansetron 4 mg disintegrating 4 mg PO Q8H PRN nausea and 07/26/20 tablet vomiting #20 tabs acetaminophen 500 mg tablet 1,000 mg (2 x 500 mg) PO QID PRN 11/09/20 pain #30 tabs cephalexin 500 mg tablet 500 mg PO QID 7 days #28 tabs 11/09/20 oxycodone 5 mg tablet 5 mg PO Q6H PRN pain #10 tabs 11/09/20 silver sulfadiazine 1 % topical 1 appl topical BID 7 days #50 grams 11/09/20 cream (Silvadene) hydrocodone 5 mg-acetaminophen 325 1 tab PO Q6H PRN pain #8 tabs 06/22/21 mg tablet cefdinir 300 mg capsule 300 mg PO BID 7 days #14 caps 03/18/22 cephalexin 500 mg capsule 500 mg PO BID #14 caps 01/06/24 Allergies Allergy/AdvReac Type Severity Reaction Status Date / Time aspirin [ASPIRIN] Allergy Unknown UNKNOWN Verified 01/06/24 14:38 ibuprofen [IBUPROFEN] Allergy Unknown NAUSEA & Verified 01/06/24 14:38 VOMITING citalopram AdvReac Unknown sleepiness Verified 01/06/24 14:38 Review of Systems Review of Systems: Yes all other systems are reviewed and are negative Constitutional: Constitutional: Denies fatigue and Denies fever(s) Cardiovascular: Cardiovascular: Denies chest pain and Denies dyspnea Respiratory: Respiratory: Denies cough and Denies dyspnea Gastrointestinal: Gastrointestinal: Reports abdominal pain, Denies nausea and Denies vomiting Genitourinary: Genitourinary: Reports dysuria and Reports flank pain Musculoskeletal: Musculoskeletal: Denies back pain Endocrine: Endocrine: Denies fatigue [facility] Past Medical History Attestation statement: The following information was validated with the patient. Medical History History of seizures Mental disability Asthma IgA nephropathy Depression Anxiety Urgency of micturition Urge incontinence Lumbar facet arthropathy Kidney disease Surgical History S/P excision of fibroadenoma of breast Family History Family History Father No problems noted. Mother Hypertension Stroke Social History Social History Alcohol intake: never Patient Tobacco Use Status: Never used Tobacco Advance Directives: No Advance Directives Information Provided: No Do you have a plan to hurt others: No Plan Physical Exam Vital Signs: Vital Signs: Last Vital Signs Temp 98.4 F 01/06/24 15:59 Pulse 75 01/06/24 15:59 Resp 18 01/06/24 15:59 BP 127/79 01/06/24 15:59 Pulse Ox 98 01/06/24 15:59 O2 Del Method Room Air 01/06/24 15:59 BMI result Body Mass Index 24.8 Const: Other: Alert, overall well-appearing Orientation/consciousness: patient oriented x3 Resp: Other: Nonlabored respiration Cardio: Other: Normal peripheral perfusion GI: Other: Abdomen is soft, nondistended nontender Back/Spine/Pelvis: Other: No CVA tenderness Skin: Other: Warm dry no rash Neuro: General: patient oriented x3, no focal motor deficits and CN's II-XI intact bilaterally Psych: Other: Calm cooperative Medical Decision Making Medical Decision Making MDM Narrative: 53-year-old female with a history of seizure disorder, mental disability, asthma, and known lumbar arthritis, presents with right flank pain x3 days. Patient unable to describe the nature of her discomfort, but it is nonradiating. Associated dysuria and gross hematuria. Denies nausea, vomiting, or fever. Patient does not have a known history of renal stones. Problem: Mental disability, seizure disorder History: Per patient I have considered the following differential diagnoses: Renal colic, pyelonephritis, UTI Plan: Given distribution of discomfort and nature of symptoms, I am considering renal colic. Screening labs are in process, the patient just gave a urine sample, adding a CT scan. Currently, the patient has no pain. Thought about pyelonephritis, however there was no CVA tenderness, and she is afebrile. This could simply be a urinary tract Infection as well. I have independently reviewed the following tests: Labs: No leukocytosis, not anemic, no electrolyte abnormality, creatinine at baseline, urine infected passing a large amount of blood if no obstructing stone, we will treat with oral antibiotics, we will hold until study comes back CT abdomen and pelvis: CT/CT abdomen pelvis wo IV con IMPRESSION: 1. No acute intra-abdominal process seen. 2. Mild constipation. Fleischner guidelines were followed. Electronically signed by: Sajan Merchant MD 01/06/2024 05:41 PM EDT RP Lab Data 01/06/24 15:07 01/06/24 15:07 Labs: Lab Results 01/06/24 01/06/24 Range/Units 15:07 15:49 WBC 6.5 (4.8-10.8) X10*3/uL RBC 4.46 (4.20-5.50) X10*6/uL Hgb 12.7 (12.0-16.0) g/dl Hct 38.9 (37.0-47.0) % MCV 87.2 (80.0-98.0) fL MCH 28.5 (27.0-33.0) pg MCHC 32.6 (31.0-35.0) g/dl RDW 14.2 (11.0-16.0) % Plt Count 276 (160-400) X10*3/uL MPV 9.2 L (9.4-12.3) fL Immature Gran % (Auto) 0.3 (0.0-0.4) % Neut % (Auto) 65.5 (45-73) % Lymph % (Auto) 26.5 (20-40) % [place] % (Auto) 6.6 (2-11) % Eos % (Auto) 0.8 (0-4) % Baso % (Auto) 0.3 (0-2) % Lymph # (Auto) 1.7 (1.2-4.9) X10*3/uL [place] # (Auto) 0.4 (0.1-1.2) X10*3/uL Eos # (Auto) 0.1 (0.0-0.4) X10*3/uL Baso # (Auto) 0.0 (0.0-0.2) X10*3/uL Abs Immat Gran (auto) 0.02 (0.00-0.03) X10*3/uL Absolute Neuts (auto) 4.2 (2.0-8.3) x10*3/uL Absolute Nucleated RBC 0.000 (0.0-0.012) X10*3/uL Nucleated RBC % (auto) 0.0 (0.0-0.2) /100WBC Sodium 142 (135-145) mmol/L Potassium 3.6 (3.3-5.1) mmol/L Chloride 105 (96-108) mmol/L Carbon Dioxide 28 (22-29) mmol/L Anion Gap 13 (12-20) BUN 12 (9-16) mg/dL Creatinine 0.83 (0.5-1.4) mg/dL Estim Creat Clear Calc 69.2 Estimated GFR > 60 Random Glucose 96 (60-115) mg/dL Calcium 9.5 (8.4-10.2) mg/dL Magnesium 1.9 (1.6-2.6) mg/dL Total Bilirubin 0.4 (0.0-1.0) mg/dL AST 16 (5-31) U/L ALT 12 (0-31) U/L Alkaline Phosphatase 54 (39-117) U/L Total Protein 7.2 (6.5-8.0) g/dL Albumin 4.3 (3.5-5.0) g/dL Beta HCG, Quant 5 mIU/mL Urine Color Red A Urine Appearance Cloudy Urine pH 7.0 (5.0-9.0) Ur Specific [place] 1.015 (1.005-1.025) Urine Protein 30 (1+) H (Neg-Trace) mg/dL Urine Glucose (UA) Negative (Negative) mg/dL Urine Ketones Negative (Negative) mg/dL Urine Blood Large (3+) H (Negative) Urine Nitrite Positive H (Negative) Ur Leukocyte Esterase Small (1+) H (Negative) Urine RBC >20 H (0-2) /HPF Urine WBC 11-20 H (0-5) /HPF Ur Squamous Epith Cells 0-2 (0-2) /HPF Urine Bacteria 4+ (None Seen) Hyaline Casts 0-2 (0-2) /LPF Discharge Plan Discharge Clinical Impression: Urinary tract infection, Constipation Patient Disposition: Home, Self-Care Instructions: Constipation (ED), Urinary Tract Infection in Women (ED) Additional Instructions: You were found to have a urinary tract infection, there was no additional acute findings on the CT scan. You were also noted to be mildly constipated. See home care instructions. For the urinary tract infection, take the cephalexin as directed. You received your 1st dose here in the emergency room, you do not require any additional medication until tomorrow. In regard to the constipation, you need to use an [id number] stool softener such as Colace use it 1 to 2 times a day. You should also use [id number] MiraLax, mix the powder per package instructions with water. Drink the solution 2 to 3 times a day until you begin having bowel movements. Follow up with your primary care provider as needed. Prescriptions: New cephalexin 500 mg capsule 500 mg PO BID Qty: 14 0RF No Action famotidine [Pepcid] 20 mg tablet 20 mg PO DAILY PRN (Reason: abdominal discomfort) Qty: 30 0RF ondansetron 4 mg tablet,disintegrating 4 mg PO Q8H PRN (Reason: nausea and vomiting) Qty: 20 0RF silver sulfadiazine [Silvadene] 1 % cream 1 appl topical BID 7 Days Qty: 50 0RF Rx Instructions: apply a 1.5 mm thickness cephalexin 500 mg tablet 500 mg PO QID 7 Days Qty: 28 0RF oxycodone 5 mg tablet 5 mg PO Q6H PRN (Reason: pain) Qty: 10 0RF Rx Instructions: Narcotic, no driving for 6 hours after taking acetaminophen 500 mg tablet 1,000 mg PO QID PRN (Reason: pain) Qty: 30 0RF hydrocodone-acetaminophen 5-325 mg tablet 1 tab PO Q6H PRN (Reason: pain) Qty: 8 0RF cefdinir 300 mg capsule 300 mg PO BID 7 Days Qty: 14 0RF oxybutynin chloride 10 mg tablet extended release 24hr 10 mg PO DAILY Qty: 30 6RF Print Language: [place]ese
[2024-01-06] MEDS: cephALEXin 500 MG CAPSULE PO (18:39)
[2024-01-06 18:42] VITALS: BP 127/79; PULSE 75; RESP 18; TEMP 36.9; O2SAT 98
== END 2024-01-06 18:42 | disposition home or self-care (01) ==
PROVIDERS: Physician Assistant Medical; Emergency Provider Emergency Medicine
DX: N39.0 Urinary tract infection, site not specified (principal); K59.00 Constipation, unspecified; R31.9 Hematuria, unspecified; R10.2 Pelvic and perineal pain; Z79.899 Other long term (current) drug therapy
CPT/HCPCS: 36415; 74176; 80053; 81001; 83735; 84702; 85025; 87086; 87088; 87186; 99284

== ENCOUNTER 2024-02-29 12:52 | Outpatient (REF) | payer MEDICAID, SELFPAY | END 2024-02-29 12:53 | disposition home or self-care (01) | LOC: HO.XRAY 12:52 | PROVIDERS: PCP Emergency Medicine; Visit Provider Emergency Medicine | DX: M79.605 Pain in left leg (principal) | CPT/HCPCS: 73590 ==

== ENCOUNTER → 2024-04-16 09:00 | Outpatient (BNV) | payer MEDICAID, SELFPAY | PROVIDERS: PCP Emergency Medicine; Visit Provider Radiology Diagnostic Radiology | DX: M79.605 Pain in left leg (principal) | CPT/HCPCS: 93971 ==

== ENCOUNTER 2024-06-06 18:02 | Outpatient (REF) | payer MEDICAID, SELFPAY ==
[2024-06-11 13:17] LABS: HPV Genotype 16 Negative (Negative); HPV Genotype 18 Negative (Negative); HPV High Risk Positive (Negative)
== END 2024-06-06 18:03 | disposition home or self-care (01) ==
LOC: HO.HHCLNP 18:02
PROVIDERS: Visit Provider Internal Medicine
DX: Z12.4 Encounter for screening for malignant neoplasm of cervix (principal)
CPT/HCPCS: 87626; 88175

== ENCOUNTER 2024-06-30 09:56 | Emergency (ER) | payer MEDICAID, SELFPAY ==
--- NOTE | 2024-06-30 09:59 | ECG_ITS ---
Test Reason : chest pain Blood Pressure : */* mmHG Vent. Rate : 75 BPM Atrial Rate : 75 BPM P-R Int : 128 ms QRS Dur : 70 ms QT Int : 386 ms P-R-T Axes : 33 20 21 degrees QTcB Int : 431 ms Normal sinus rhythm Nonspecific ST abnormality Abnormal ECG When compared with ECG of 26-Jul-2020 21:17, Premature atrial complexes are no longer Present Referred By: Generic ED Physician Electronically Signed By: ANGELICA HICKS
[2024-06-30 10:13] VITALS: BP 132/78; PULSE 75; RESP 16; TEMP 36.7; O2SAT 98; BMI 21.5
[2024-06-30 10:36] LABS: MANUAL DIFF FLAG NO
[2024-06-30 10:38] LABS: Appearance Urine Cloudy; Basophils Percent Auto 0.2 % (0-2); Color Urine Yellow; Eosinophils Percent Auto 0.1 % (0-4); Glucose Urine UA Negative (Negative); Hematocrit 37.4 % (37.0-47.0); Hemoglobin 12.2 g/dl (12.0-16.0); Imm Gran Abs Auto 0.02 X10*3/uL (0.00-0.03); Imm Gran Pct Auto 0.2 % (0.0-0.4); Leukocyte Esterase Urine Trace (Negative); Lymphocytes Absolute Auto 1.7 X10*3/uL (1.2-4.9); Lymphocytes Percent Auto 19.3 % (20-40); Mean Corpuscular HGB Conc 32.6 g/dl (31.0-35.0); Mean Corpuscular Hemoglobin 27.9 pg (27.0-33.0); Mean Corpuscular Volume 85.4 fL (80.0-98.0); Mean Platelet Volume 9.5 fL (9.4-12.3); Monocytes Absolute Auto 0.5 X10*3/uL (0.1-1.2); Monocytes Percent Auto 5.2 % (2-11); Neutrophils Absolute Auto 6.7 x10*3/uL (2.0-8.3); Nitrite Urine Negative (Negative); Platelet Count 317 X10*3/uL (160-400); Red Blood Count 4.38 X10*6/uL (4.20-5.50); Red Cell Distribution Width 14.1 % (11.0-16.0); Specific Gravity - Urine 1.025 (1.005-1.025); UMIC TRIGGER UACC YES; Urine Blood Trace (Negative); Urine Ketones 15 mg/dL (Negative); Urine Protein Negative (Neg-Trace)
[2024-06-30 10:40] LABS: UPreg QC Valid YES; Urine Pregnancy NEGATIVE (NEGATIVE)
[2024-06-30 10:48] LABS: Bacteria Urine 4+ (None Seen); Hyaline Casts Urine 0-2 /LPF (0-2); WBC Urine 0-5 /HPF (0-5)
[2024-06-30 10:50] LABS: Alanine Aminotransferase 25 U/L (0-31); Albumin Level 4.6 g/dL (3.5-5.0); Alkaline Phosphatase 57 U/L (39-117); Anion Gap 14 (12-20); Aspartate Amino Transferase 24 U/L (5-31); Bilirubin Total 0.6 mg/dL (0.0-1.0); Blood Urea Nitrogen 15 mg/dL (9-16); Calcium 10.2 mg/dL (8.4-10.2); Carbon Dioxide 25 mmol/L (22-29); Chloride 107 mmol/L (96-108); Creatinine Clr Calc Pharmacy 86.3; Estimated Glomerular Filt Rate > 60; Glucose Random 95 mg/dL (60-115); Potassium 3.9 mmol/L (3.3-5.1); Sodium 142 mmol/L (135-145); Total Protein 7.7 g/dL (6.5-8.0)
[2024-06-30 10:58] LABS: Troponin-I High Sensitivity < 2.7 ng/L (<3.5-17.0)
[2024-06-30 11:02] VITALS: BP 126/80; PULSE 71; RESP 18; TEMP 36.8; O2SAT 97
--- NOTE | 2024-06-30 11:02 | ED.CHESTPAIN ---
HPI - Chest Pain General Chief Complaint: Chest Pain Stated Complaint: chest pain Time Seen by Provider: 06/30/24 11:02 History of Present Illness ED Provider: Gabby QUINTERO narrative: The patient is a 53-year-old female with a history of a seizure disorder and anxiety who says that she has been sleeping poorly recently. She had some chest discomfort last night that recurred again when she was out in the park at around 09:00. She was doing nothing in particular when the symptoms began. The symptoms are somewhat better while waiting to be seen. There was no associated nausea or vomiting. No associated sweats. She did feel somewhat short of breath. She says that the pain was in her chest and radiated to both of her legs. She has no history of hypertension, diabetes, or elevated cholesterol. Related Data Previous Rx's ?Medication ?Instructions ?Recorded oxybutynin chloride 10 mg 10 mg PO DAILY #30 tabs 04/02/20 tablet,extended release 24 hr famotidine 20 mg tablet (Pepcid) 20 mg PO DAILY PRN abdominal 07/26/20 discomfort #30 tabs ondansetron 4 mg disintegrating 4 mg PO Q8H PRN nausea and 07/26/20 tablet vomiting #20 tabs acetaminophen 500 mg tablet 1,000 mg (2 x 500 mg) PO QID PRN 11/09/20 pain #30 tabs cephalexin 500 mg tablet 500 mg PO QID 7 days #28 tabs 11/09/20 oxycodone 5 mg tablet 5 mg PO Q6H PRN pain #10 tabs 11/09/20 silver sulfadiazine 1 % topical 1 appl topical BID 7 days #50 grams 11/09/20 cream (Silvadene) hydrocodone 5 mg-acetaminophen 325 1 tab PO Q6H PRN pain #8 tabs 06/22/21 mg tablet cefdinir 300 mg capsule 300 mg PO BID 7 days #14 caps 03/18/22 cephalexin 500 mg capsule 500 mg PO BID #14 caps 01/06/24 acetaminophen 500 mg capsule 1,000 mg (2 x 500 mg) PO Q8H PRN 06/30/24 fever or pain #14 caps Allergies Allergy/AdvReac Type Severity Reaction Status Date / Time aspirin [ASPIRIN] Allergy Unknown UNKNOWN Verified 06/30/24 10:15 ibuprofen [IBUPROFEN] Allergy Unknown NAUSEA & Verified 06/30/24 10:15 VOMITING citalopram AdvReac Unknown sleepiness Verified 06/30/24 10:15 Review of Systems Review of Systems: Yes all other systems are reviewed and are negative [facility] Past Medical History Medical History History of seizures Mental disability Asthma IgA nephropathy Depression Anxiety Urgency of micturition Urge incontinence Lumbar facet arthropathy Kidney disease Surgical History S/P excision of fibroadenoma of breast Family History Family History Father No problems noted. Mother Hypertension Stroke Social History Social History (System 03/04/24 @ 13:33 by Vee Gorman) Alcohol intake: never Patient Tobacco Use Status: Never used Tobacco Smoked in Last 30 Days: No Use of substances other than those prescribed or required for medical reasons: No Advance Directives: No Advance Directives Information Provided: No Patient : No Physical Exam Vital Signs: Vital Signs: Last Vital Signs Temp 98.0 F 06/30/24 11:46 Pulse 68 06/30/24 11:46 Resp 18 06/30/24 11:46 BP 138/67 06/30/24 11:46 Pulse Ox 97 06/30/24 11:46 O2 Del Method Room Air 06/30/24 11:46 BMI result Body Mass Index 21.5 Const: Other: The patient is awake, alert, pleasant, cooperative. She does not seem in any distress. She has an anxious affect. HEENT: Other: Face is symmetrical. Mucous membranes moist. Eyes: General: appearance normal, both eyes and all related structures Neck: Neck: Yes full ROM, Yes no lymphadenopathy and Yes no JVD Chest: Other: The patient has chest wall tenderness on the parasternal regions of the chest bilaterally. Palpation seems to reproduce her pain Resp: Effort & Inspection: normal respiratory effort Auscultation: clear to auscultation bilaterally Cardio: Rate: regular rate Rhythm: regular rhythm Heart sounds: S1 normal heart sound present and S2 normal heart sound present GI: Other: Abdomen is soft and nontender Skin: Other: Skin is dry and unremarkable General skin exam: no rashes or lesions noted Neuro: Other: The patient is awake and alert with a normal mental status. Cranial nerves 2-12 are grossly intact. She moves her extremities symmetrically and appropriately. She seems grossly neurologically intact. Extrem: Other: No calf swelling or tenderness, no asymmetry, no edema Medications Administered Discontinued Medications Generic Name Dose Route Start Last Admin Trade Name Rosanna PRN Reason Stop Dose Admin Acetaminophen 975 mg 06/30/24 11:26 06/30/24 11:39 Acetaminophen 325 Mg Tablet PO 06/30/24 11:27 975 mg ONCE ONE Administration Medical Decision Making Medical Decision Making [facility] Narrative: The patient is a 53-year-old female who has no history of coronary disease. Additionally she does not seem to have a history of hypertension, diabetes, or elevated cholesterol. She is not a smoker. She has a history of a seizure disorder. She also reports a history of anxiety. She is here for evaluation of chest pain. Clinically she seems to have chest wall pain, she has reproducible tenderness of the chest wall at the sternal borders. She has an EKG that is unremarkable and similar to an EKG from 2020. Labs are unremarkable. Troponin is undetectable. My suspicion for an acute coronary syndrome is low enough that I do not think in an additional troponin is negative. She will be advised to use Tylenol (she can does not tolerate nonsteroidal anti-inflammatories) and she should follow up with her regular doctor. Lab Data 06/30/24 10:29 06/30/24 10:29 Labs: Lab Results 06/30/24 Range/Units 10:29 WBC 9.0 (4.8-10.8) X10*3/uL RBC 4.38 (4.20-5.50) X10*6/uL Hgb 12.2 (12.0-16.0) g/dl Hct 37.4 (37.0-47.0) % MCV 85.4 (80.0-98.0) fL MCH 27.9 (27.0-33.0) pg MCHC 32.6 (31.0-35.0) g/dl RDW 14.1 (11.0-16.0) % Plt Count 317 (160-400) X10*3/uL MPV 9.5 (9.4-12.3) fL Immature Gran % (Auto) 0.2 (0.0-0.4) % Neut % (Auto) 75.0 H (45-73) % Lymph % (Auto) 19.3 L (20-40) % [place] % (Auto) 5.2 (2-11) % Eos % (Auto) 0.1 (0-4) % Baso % (Auto) 0.2 (0-2) % Lymph # (Auto) 1.7 (1.2-4.9) X10*3/uL [place] # (Auto) 0.5 (0.1-1.2) X10*3/uL Eos # (Auto) 0.0 (0.0-0.4) X10*3/uL Baso # (Auto) 0.0 (0.0-0.2) X10*3/uL Abs Immat Gran (auto) 0.02 (0.00-0.03) X10*3/uL Absolute Neuts (auto) 6.7 (2.0-8.3) x10*3/uL Absolute Nucleated RBC 0.000 (0.0-0.012) X10*3/uL Nucleated RBC % (auto) 0.0 (0.0-0.2) /100WBC Sodium 142 (135-145) mmol/L Potassium 3.9 (3.3-5.1) mmol/L Chloride 107 (96-108) mmol/L Carbon Dioxide 25 (22-29) mmol/L Anion Gap 14 (12-20) BUN 15 (9-16) mg/dL Creatinine 0.75 (0.5-1.4) mg/dL Estim Creat Clear Calc 86.3 Estimated GFR > 60 Random Glucose 95 (60-115) mg/dL Calcium 10.2 D (8.4-10.2) mg/dL Total Bilirubin 0.6 (0.0-1.0) mg/dL AST 24 (5-31) U/L ALT 25 (0-31) U/L Alkaline Phosphatase 57 (39-117) U/L Troponin I High Sens < 2.7 (<3.5-17.0) ng/L Total Protein 7.7 (6.5-8.0) g/dL Albumin 4.6 (3.5-5.0) g/dL Urine Color Yellow Urine Appearance Cloudy Urine pH 6.0 (5.0-9.0) Ur Specific [place] 1.025 (1.005-1.025) Urine Protein Negative (Neg-Trace) mg/dL Urine Glucose (UA) Negative (Negative) mg/dL Urine Ketones 15 (Negative) mg/dL Urine Blood Trace (Negative) Urine Nitrite Negative (Negative) Ur Leukocyte Esterase Trace H (Negative) Urine RBC 3-5 H (0-2) /HPF Urine WBC 0-5 (0-5) /HPF Ur Squamous Epith Cells 3-5 (0-2) /HPF Urine Bacteria 4+ (None Seen) Hyaline Casts 0-2 (0-2) /LPF Urine Test NEGATIVE (NEGATIVE) Independent Interpretation I performed an independent interpretation of an: EKG Interpretation: EKG at 1009 shows normal sinus rhythm at 75 beats per minute. No definite acute ischemic changes. EKGs very similar to a previous EKG from July of 2020. Discharge Plan Discharge Clinical Impression: Chest pain Patient Disposition: Home, Self-Care Instructions: Chest Wall Pain (ED) Additional Instructions: I believe the pain you were experiencing in your chest is coming from your chest wall. I think this is much more likely than any more dangerous process. You may use acetaminophen (Tylenol) as needed for pain. Please follow up soon with your regular doctor to discuss your symptoms further. Return to the emergency room if significantly worse. Prescriptions: New acetaminophen 500 mg capsule 1,000 mg PO Q8H PRN (Reason: fever or pain) Qty: 14 0RF No Action famotidine [Pepcid] 20 mg tablet 20 mg PO DAILY PRN (Reason: abdominal discomfort) Qty: 30 0RF ondansetron 4 mg tablet,disintegrating 4 mg PO Q8H PRN (Reason: nausea and vomiting) Qty: 20 0RF silver sulfadiazine [Silvadene] 1 % cream 1 appl topical BID 7 Days Qty: 50 0RF Rx Instructions: apply a 1.5 mm thickness cephalexin 500 mg tablet 500 mg PO QID 7 Days Qty: 28 0RF oxycodone 5 mg tablet 5 mg PO Q6H PRN (Reason: pain) Qty: 10 0RF Rx Instructions: Narcotic, no driving for 6 hours after taking acetaminophen 500 mg tablet 1,000 mg PO QID PRN (Reason: pain) Qty: 30 0RF hydrocodone-acetaminophen 5-325 mg tablet 1 tab PO Q6H PRN (Reason: pain) Qty: 8 0RF cefdinir 300 mg capsule 300 mg PO BID 7 Days Qty: 14 0RF cephalexin 500 mg capsule 500 mg PO BID Qty: 14 0RF oxybutynin chloride 10 mg tablet extended release 24hr 10 mg PO DAILY Qty: 30 6RF Referrals: Anuja Borjas MD [Primary Care Provider] - (Chest wall pain) Interventions: ED Discharge Assessment Last Done: 06/30/24 11:46 Discharge Date/Time: 06/30/24 11:48 Print Language: Kyrgyz
--- OUTSIDE RECORDS SUMMARY | 2024-06-30 11:08 | XMS_ITS | Encounter Summary ---
Author Organization [employer] Address [address] [place] [address] Care Team Providers Care Lusterer Name Role Phone Anuja Borjas MD Primary Care Provide r Encounter Details Date Type Department Care Team ([facility] Contact Info) Description 09/18/2022 Abstract [facility] [address] [place] [address] [phone] Anuja Borjas MD [address] [place] [address] [phone] Social History Tobacco Use Types Packs/Day Years Used Date Smoking Tobacco: Never Smokeless Tobacco: Never Alcohol Use Standard Drinks/Week Comments Never 0 (1 standard drink = 0.6 oz pur e alcohol) Comments Unknown Sex and Gender Information Value Date Recorded Sex Assigned at Female 01/09/2022 10:14 AM EDT Legal Sex Female 10:14 AM EDT Gender Identity Choose not to disclose 10:14 AM EDT Sexual Orientation Choose not to disclose 2021 10:14 AM EDT documented as of this encounter Plan of Treatment Upcoming Encounters Date Type Department Care Team (Late Contact Info) Description 07/29/2024 2:45 PM EDT Office Visit [facility] [address] [place] [address] [phone] Anuja Borjas MD [address] [place] [address] [phone] documented as of this encounter Visit Diagnoses Not on filedocumented in this encounter Care Teams Lusterer Relationship Specialty Start Date End Date Anuja Borjas MD [address] [place] [address] PCP - General Family Medicine 01/19/21 documented as of this encounter
--- OUTSIDE RECORDS SUMMARY | 2024-06-30 11:08 | XMS_ITS | Clinical Summary ---
Author Organization [employer] Address [address] [facility] [place] [address] Care Team Providers Care Gaming Director Name Role Phone Anuja Borjas MD Primary Care Provide r Allergies Active Allergy Reactions Criticality Noted Date Comments Penicillins 08/23/2011 Other reaction(s): vomiting Sulfa Antibiotics 12/25/2011 Other reaction(s): vomiting Medications * This document contains information received from the source organization and may not represent a complete record from that organization. amitriptyline (Elavil) 10 MG tablet TAKE 1 TABLET BY MOUTH AT BEDTIME 30 tablet 1 023 Active cholecalciferol (Vitamin D-3) 50 MCG (1999 UT) capsuleIndicati ons:Vitamin D deficiency take 1 capsule by Oral route every day 90 capsule 1 024 Active Spacer/Aero-Hol ding Chambers deviceIndicatio ns:Mild intermittent asthma, unspecified whether complicated 1 each every 6 (six) hours if needed (use for albuterol inhaler). 1 each 024 Active Mometasone Furoate (Asmanex HFA) 200 MCG/ACT aerosolIndicati ons:Mild intermittent asthma, unspecified whether complicated 2 puffs po bid 13 g 11 024 Active mirtazapine (Remeron) 30 MG tabletIndicatio ns:Anxiety Take 1 tablet (30 mg) by mouth at bedtime. 30 tablet 024 Active hydrOXYzine HCl (Atarax) 25 MG tabletIndicatio ns:Anxiety Take 1 tablet (25 mg) by mouth every 8 (eight) hours if needed for itching for up to 20 days. 30 tablet 1 Active Blood Pressure Monitoring (Blood Pressure Cuff) miscIndications :Primary hypertension 1 each Once daily. 1 each Active albuterol (2.5 MG/3ML) 0.083% nebulizer solutionIndicat ions:Mild intermittent asthma, unspecified whether complicated Take 3 mL (2.5 mg) by nebulization every 4 (four) hours if needed for wheezing. 75 mL 3 024 2024 Active amLODIPine (Norvasc) 2.5 MG tabletIndicatio ns:Primary hypertension TAKE 1 TABLET BY MOUTH EVERY DAY 90 tablet 1 Active albuterol 108 (90 Base) MCG/ACT inhalerIndicati ons:Mild intermittent asthma, unspecified whether complicated Inhale 2 puffs every 6 (six) hours if needed for wheezing. 18 g 1 025 2025 Active lidocaine (Lidoderm) 5 % patch Apply 1 patch topically Once per day. Remove & discard patch within 12 hours or as directed by MD. 30 patch 2 025 2025 Active divalproex (Depakote ER) 250 MG 24 hr tabletIndicatio ns:Seizure disorder (CMS/HCC) Take 1 tablet (250 mg) by mouth 2 times daily. Do not crush, chew, or split.TAKE 1 TABLET BY MOUTH TWICE DAILY DO NOT BREAK, CRUSH, DISSOLVE OR CHEW 60 tablet 3 Active acetaminophen (Tylenol) 500 MG tabletIndicatio ns:Bilateral leg pain Take 2 tablets (1,000 mg) by mouth every 6 (six) hours if needed for moderate pain or fever for up to 25 doses. 50 tablet Active famotidine (Pepcid) 20 MG tabletIndicatio ns:Gastroesopha geal reflux disease, unspecified whether esophagitis present Take 1 tablet (20 mg) by mouth 2 times daily. 60 tablet 11 025 2025 Active divalproex (Depakote ER) 250 MG 24 hr tabletIndicatio ns:Seizure disorder (CMS/HCC) TAKE 1 TABLET BY MOUTH TWICE DAILY DO NOT BREAK, CRUSH, DISSOLVE OR CHEW 60 tablet 3 024 2024 Discontinued(R eorder (will not trigger notification to Pharmacy)) acetaminophen (Tylenol) 500 MG tablet Take 2 tablets (1,000 mg) by mouth every 6 (six) hours if needed for moderate pain or fever for up to 25 doses. 50 tablet 024 2024 Discontinued(R eorder (will not trigger notification to Pharmacy)) divalproex (Depakote ER) 250 MG 24 hr tabletIndicatio ns:Seizure disorder (CMS/HCC) Take 1 tablet (250 mg) by mouth 2 times daily. Do not crush, chew, or split.TAKE 1 TABLET BY MOUTH TWICE DAILY DO NOT BREAK, CRUSH, DISSOLVE OR CHEW 60 tablet 3 025 2024 Discontinued(R eorder (will not trigger notification to Pharmacy)) Active Problems Problem Noted Date Diagnosed Date Unstable gait 06/06/2024 Assessment & Plan (06/06/2024 2:04 PM EDT): I will prescribe for patient a roller walker Bilateral leg pain 06/06/2024 Assessment & Plan (06/06/2024 2:03 PM EDT): I will prescribe for patient acetaminophen as needed GERD (gastroesophageal reflux disease) Assessment & Plan (06/06/2024 2:03 PM EDT): I advise patient to avoid NSAIDs, spicy and acid food, I advise to eat at the same time every day, I advise to elevate the head of the bed and take medications as prescribe I will prescribe famotidine 20 mg twice a day and I will refer her to gastroenterology Encounter for Papanicolaou smear of cervix 06/06 Assessment & Plan (06/06/2024 2:03 PM EDT): Pap and pelvic exam done patient will be contacted with results, Colon cancer screening 01/02/2024 Temporary high blood pressure 01/02/2024 Primary hypertension 01/02/2024 Assessment & Plan (06/06/2024 2:02 PM EDT): Blood pressure seems to be under control now I advised low-sodium diet and continue with amlodipine 2.5 mg daily Assessment & Plan (01/02/2024 10:04 AM EDT): I advise low Na diet I will start her on low dose of amlodipine I prescribed for her blood pressure cuff I instructed to check BP at home and log it, bring it for next appointment Seasonal allergies 12/27/2022 Health care maintenance 12/27/2022 Assessment & Plan (12/27/2022 9:46 AM EDT): Patient will be schedule for PAP smear Mammogram ordered today Encounter for screening mamm ogram for malignant neoplasm of breast 12/27/2022 Chronic low back pain 03/30/2022 Migraine without aura, not refractory 03/30/2022 Assessment & Plan (10/04/2023 12:16 PM EDT): I advise to avoid migraine triggers like red wine, chocolate, cheese, strong perfumes Mild intermittent asthma 03/30/2022 Assessment & Plan (01/02/2024 10:04 AM EDT): The patient was prescribed a nebulizer. Instructions on how to use the nebulizer were provided Assessment & Plan (11/30/2023 1:42 PM EDT): No evidence of active exacerbation. I called pharmacy and explained to pt that the albuterol she is looking for (Pro Air) is no longer made. I explained she is using the albuterol too often and we will trial maintained medication. -prescribing Asmanex HFA. 2 puffs in the morning and at night 11/30/23 -discussed albuterol is only in emergent situations. -ER precautions given. -follow up with PCP 4-6 weeks for asthma evaluation Assessment & Plan (10/04/2023 12:15 PM EDT): Patient educated to avoid asthma triggers Albuterol refilled today Urinary incontinence 07/07/2014 Assessment & Plan (12/27/2022 9:43 AM EDT): Supplies pull ups and washable bed pads will be prescribe for patient Fibroadenoma 03/18/2014 Vitamin D deficiency 11/17/2013 Depression 10/23/2013 Intellectual disability 10/23/2013 Constipation 08/23/2011 IgA nephropathy 08/23/2011 Anxiety 07/31/2011 Overview (03/30/2022): Follows with a therapist and psychiatrist at [facility] Assessment & Plan (01/02/2024 10:05 AM EDT): I increased mirtazapine to 30mg I also prescribed hydroxyzine 25mg Q 8hrs PRN Assessment & Plan (10/04/2023 12:14 PM EDT): Counseling done I will re-start her on mirtazapine 15mg at bed time Assessment & Plan (12/27/2022 9:45 AM EDT): I will start patient on mirtazapine 15mg at bed time Letter for emotional support pet will be generated for patient I instructed for her to go to medical records [facility] referral Seizure disorder 07/31/2011 Assessment & Plan (06/06/2024 2:02 PM EDT): Stable with current medication regimen, I will refill her Depakote to 250 mg twice a day Assessment & Plan (10/04/2023 12:16 PM EDT): C/w same medication regimen Thrombosed external hemorrhoids 07/31/2011 Encounters Date Type Department Care Team Description 06/30/2024 Orders Only GENERIC EXTERNAL DATA DEPARTMENT Provider, Generic External Data 06/13/2024 Patient Outreach [facility] [address] [place] [address] Anuja Borjas MD Pre-visit Planning (SDOH will need to be completed in office.) 06/13/2024 Telephone [facility] [address] [place] [address] Anuja Borjas MD Error (VOID this visit) 06/12/2024 Telephone [facility] [address] [place] [phone] Anuja Borjas MD Results 06/11/2024 Orders Only [facility] [address] [place] [phone] Anuja Borjas MD ASCUS with positive high risk HPV cervical (Primary Dx) 06/11/2024 Telephone [facility] [address] [place] [phone] Anuja Borjas MD Durable Medical Equipment 06/06/2024 2:00 PM EDT Procedure Visit [address] [address] Anuja Borjas MD Unstable gait (Primary Dx); Seizure disorder (CMS/HCC); Bilateral leg pain; Gastroesophageal reflux disease, unspecified whether esophagitis present; Encounter for Papanicolaou smear of cervix; Primary hypertension 06/06/2024 Orders Only [facility] [address] [place] [phone] Anuja Borjas MD 06/06/2024 Travel 06/02/2024 Refill [facility] [address] [place] [address] Anuja Borjas MD Seizure disorder (CMS/HCC) 05/23/2024 Population Health Risk Score [facility] () Department [address] [place] [phone] Provider, Population Health Generic 05/21/2024 10:40 AM EDT Office Visit [facility] [address] [address] Srikanth Tay MD Mild intermittent asthma with acute exacerbation (Primary Dx); Chronic low back pain without sciatica, unspecified back pain laterality; Primary hypertension 04/23/2024 10:00 AM EST Office Visit [facility] [address] [address] Yasir Maldonado MD Sore throat (Primary Dx); Myalgia; Acute cough; Mild intermittent asthma, unspecified whether complicated 04/18/2024 Telephone [facility] [address] [place] [phone] Nemo Tong, CRISTÓBAL Results 04/18/2024 Telephone [facility] [address] [place] [phone] Radha Ventura, CRISTÓBAL Results 04/14/2024 Telephone [facility] [address] [address] Srikanth Tay MD 04/14/2024 Orders Only [facility] [address] [address] Srikanth Tay MD Left leg pain (Primary Dx) 04/11/2024 Telephone [facility] [address] [address] Beatriz Mcneill RN Results from Last 3 Months Immunizations Name Administration Dates Next Due Hep B, adult 05/31/2000,01/05/2000,12/07/1999 Influenza injectable quadriv alent IIV4 with preservative 01/14/2018,11/25/2014,01/10/2014 Influenza injectable quadriv alent preservative free 01/04/2021,12/08/2019,12/07/2018,2016,11/02/2015 Influenza, IIV3, injectable 11/28/2010 Influenza, Split (incl. faraz fied surface antigen) 11/29/2012,11/10/2011 Influenza, Unspecified 11/25/2014,01/10/2014 Influenza, seasonal, injecta ble, preservative free 11/30/2023 MMR 02/20/1990,06/28/1978,06/28/1977 Pfizer Covid-19 Vaccine 12+ 11/30/2023 TD (adult), 2 Lf tetanus tox oid, preservative free, adsorbed 08/10/2004,07/27/1999 Tdap 11/09/2020,03/18/2014,10/28/2012 Social History Tobacco Use Types Packs/Day Years Used Date Smoking Tobacco: Never Passive Smoke Exposure: Never Smokeless Tobacco: Never Tobacco Cessation:Counseling Given: Not Answered Alcohol Use Standard Drinks/Week Comments Never 0 (1 standard drink = 0.6 oz pur e alcohol) Depression Answer Date Recorded Patient Health Questionnaire-9 Score 18 10/02/2023 Patient Health Questionnaire-9 Score 18 10/02/2023 Last PHQ-9: Questionnaire Data Not on file 0 10/02/2023 Housing Stability Answer Date Recorded What is your housing situation today? I have gala recio 10/02/[address] you li ve. Do you have problems with any of the following? None of the above 10/02/2023 Food Insecurity Answer Date Recorded Within the past 12 months, y ou worried that your food would run out before you got money to buy more: Never True 10/02/2023 Within the past 12 months,th e food you bought just didn't last and you didn't have enough money to get more: Never True Transportation Answer Date Recorded In the past 12 months, has l ack of transportation kept you from medical appts, meetings, work or from getting things needed for daily living? No 10/02/2023 Utilities Answer Date Recorded In the past 12 months, has t he electric, gas, oil or water company threatened to shut off services in your home? No 10/02/2023 Depression Answer Date Recorded Patient Health Questionnaire-2 Score 6 10/02/2023 Internet Access Answer Date Recorded Internet Access Q1 No 11/12/2023 Internet Access Q2 I do not want or need it 04/2023 Comments Unknown Sex and Gender Information Value Date Recorded Sex Assigned at Female 01/09/2022 10:14 AM EDT Legal Sex Female 10:14 AM EDT Gender Identity Choose not to disclose 10:14 AM EDT Sexual Orientation Choose not to disclose 2021 10:14 AM EDT Last Filed Vital Signs Vital Sign Reading Time Taken Comments Blood Pressure 124/78 06/06/2024 1:41 PM EDT Pulse 88 06/06/2024 1:41 PM EDT Temperature 36.3 ??C (97.3 ??F) 06/06/2024 1:41 PM ED T Respiratory Rate 18 06/06/2024 1:41 PM EDT Oxygen Saturation 98% 06/06/2024 1:41 PM EDT Inhaled Oxygen Concentration - - Weight 63.5 kg (140 lb) 06/06/2024 1:41 PM EDT Height 167.6 cm (5' 6 ) 06/06/2024 1:41 PM EDT Body Mass Index 22.6 06/06/2024 1:41 PM EDT Plan of Treatment Upcoming Encounters Date Type Department Care Team (Late st Contact Info) Description 07/29/2024 2:45 PM EDT Office Visit [facility] [address] [place] [address] Anuja Borjas MD [address] [place] [address] Health Maintenance Due Date Last Done Comments CT Colonography 1972 Colonoscopy 1972 Colorectal Cancer Screening 1972 FIT DNA/Cologuard 1972 FIT 1972 FOBT 1972 Sigmoidoscopy 1972 Family Planning (PISQ) 11/04/1987 Pneumococcal Vaccine: 50+ Years (1 of 2 - PCV) 11/04/1991 Mammogram 2012 Zoster Vaccines (1 of 2) 2022 Depression Monitoring 04/03/2024 10/02/2023, 024 Colposcopy 06/07/2024 Alcohol/Substance Use Screening 10/01/2024 10/02/2023 Depression Screening 10/01/2024 10/02/2023, 10/02/19 24 SDOH Screening 10/01/2024 10/02/2023 Tobacco Screening 06/06/2025 06/06/2024 Lipid Panel 07/28/2026 07/28/2021 Pap Smear 06/07/2027 06/06/2024, 04/03/2019 Cervical Cancer Screening 06/06/2029 HPV/Cotest 06/06/2029 06/06/2024, 04/03/2019 DTaP/Tdap/Td Vaccines (4 - Td or Tdap) 11/09/2030 11/09/2020, 03/18/2014, 10/28/2012, Additional history exists RSV Patients and Patients Aged 60 years or older (1 - 1-dose 75+ series) 11/04/2047 Hepatitis B Vaccines Completed 05/31/2000, 01/05/2000, 12/07/1999 HIV Screening Completed 07/28/2021 Hepatitis C Screening Completed 07/28/2021 COVID-19 Vaccine Completed 11/30/2023, 11/2020, 05/21/2020 Influenza Vaccine Completed 11/30/2023, , 12/08/2019, Additional history exists HIB Vaccines Aged Out No longer eligi ble based on patient's age to complete this topic HPV Vaccines Aged Out No longer eligi ble based on patient's age to complete this topic Hepatitis A Vaccines Aged Out No long er eligible based on patient's age to complete this topic IPV Vaccines Aged Out No longer eligi ble based on patient's age to complete this topic Meningococcal Vaccine Aged Out No david princess eligible based on patient's age to complete this topic RSV under 20 months Aged Out No longe r eligible based on patient's age to complete this topic Rotavirus Vaccines Aged Out No longer eligible based on patient's age to complete this topic Procedures Procedure Name Priority Date/Time Associated Diagnosis Comments HIGH SENSITIVITY TROPONIN I Routine 06/30/2024 10:29 AM EDT COMPREHENSIVE METABOLIC PANEL Routine 06/30/2024 10:29 AM EDT HCG, QL, URINE Routine 06/30/2024 10:29 AM EDT URINALYSIS, COMPLETE, WITH REFLEX TO CULTURE Routine 06/30/2024 10:29 AM EDT CBC WITH AUTO DIFFERENTIAL Routine 06/30/2024 10:29 AM EDT PAP SMEAR Routine 06/06/2024 12:00 AM EDT Encounter for Papanicolaou smear of cervix HPV DNA, LOW/HIGH RISK Routine 06/06/2024 12:00 AM EDT POCT RAPID STREP A Routine 04/23/2024 10 :11 AM EST Sore throat Myalgia Acute cough Mild intermittent asthma, unspecified whether complicated POCT RAPID COVID ANTIGEN Routine 04/23/2024 10:11 AM EST Sore throat Myalgia Acute cough Mild intermittent asthma, unspecified whether complicated POCT INFLUENZA A (ID NOW RAPID MOLECULAR) Routine 04/23/2024 10:11 AM EST Sore throat Myalgia Acute cough Mild intermittent asthma, unspecified whether complicated POCT INFLUENZA B (ID NOW RAPID MOLECULAR) Routine 04/23/2024 10:11 AM EST Sore throat Myalgia Acute cough Mild intermittent asthma, unspecified whether complicated US VENOUS DUPLEX LE LT Routine 04/16/2024 9:00 AM EST ZZZ HISTORICAL HEPATITIS C AB W/REFL TO HCV RNA, QN, PCR Routine 07/28/2021 8:33 AM EDT HIV 1/2 ANTIGEN/ANTIBODY, FOURTH GENERATION W/RFL Routine 07/28/2021 8:33 AM EDT LIPID PANEL, STANDARD Routine 07/28/2021 8:33 AM EDT from Last 3 Months or Most Recently Relevant to Health Maintenance Results * High Sensitivity Troponin I (06/30/2024 10:29 AM EDT) TROPONIN I HIGH SENSITIVITY <2.7 <3.5 - 17.0 ng/L [facility] Comment:The Arora high sens itivity Troponin-I results should beused in conjunction with other diagnostic information suchas ECG, clinical observations and information, and patientsymptoms to aid in the diagnosis of [place]. 06/30/2024 10:2 9 AM EDT 06/30/2024 10:34 AM EDT us Generic External Data Provider LAB BLOOD ORDERAB LES Final Result [facility] [address] [place] [address] [phone] * (ABNORMAL) Urinalysis, Complete, with Reflex to Culture (06/30/2024 10:29 AM EDT) Color Urine Yellow [facility] Appearance Urine Cloudy [facility] PH 6.0 5.0 - 9.0 [facility] Glucose Urine UA Negative Negative mg/dL [facility] Urine Blood Trace Negative [facility] Specific [place] - Urine 1.025 1.005 - 1.025 [facility] Urine Protein Negative Neg-Trace mg/dL [facility] Urine Ketones 15 Negative mg/dL [facility] Nitrite Urine Negative Negative [facility] Leukocyte Esterase Urine Trace(A) Negative [facility] RBC Urine 3-5(A) 0 - 2 /HPF [facility] Urine WBC 0-5 0 - 5 /HPF [facility] Urine Squamous Epithelial Cell 3-5 0 - 2 /HPF [facility] Urine Bacteria 4+ None Seen [facility] Hyaline Casts, Urine 0-2 0 - 2 /LPF [facility] 06/30/2024 10:2 9 AM EDT 06/30/2024 10:34 AM EDT Narrative [facility] - 06/30/2024 10:48 AM EDT [id number], Clean Catch us Generic External Data Provider LAB URINE ORDERAB LES Final Result [facility] [address] [place] [address] [phone] * (ABNORMAL) CBC auto differential (06/30/2024 10:29 AM EDT) White Blood Count 9.0 4.8 - 10.8 X10*3/uL [facility] Red Blood Count 4.38 4.20 - 5.50 X10*6/uL [facility] Hemoglobin 12.2 12.0 - 16.0 g/dl [facility] Hematocrit 37.4 37.0 - 47.0 % [facility] Mean Corpuscular Volume 85.4 80.0 - 98.0 fL [facility] Mean Corpuscular Hemoglobin 27.9 27.0 - 33.0 pg [facility] Mean Corpuscular HGB Conc 32.6 31.0 - 35.0 g/dl [facility] Red Cell Distribution Width 14.1 11.0 - 16.0 % [facility] Platelet Count 317 160 - 400 X10*3/uL [facility] Mean Platelet Volume 9.5 9.4 - 12.3 fL [facility] Neutrophils Percent Auto 75.0(H) 45 - 73 % [facility] Imm Gran Pct Auto 0.2 0.0 - 0.4 % [facility] Lymphocytes Percent Auto 19.3(L) 20 - 40 % [facility] Monocytes Percent Auto 5.2 2 - 11 % [facility] Eosinophils Percent Auto 0.1 0 - 4 % [facility] Basophils Percent Auto 0.2 0 - 2 % [facility] NRBC Pct Auto 0.0 0.0 - 0.2 /100WBC [facility] Neutrophils Absolute Auto 6.7 2.0 - 8.3 x10*3/uL [facility] Imm Gran Abs Auto 0.02 0.00 - 0.03 X10*3/uL [facility] Lymphocytes Absolute Auto 1.7 1.2 - 4.9 X10*3/uL [facility] Monocytes Absolute Auto 0.5 0.1 - 1.2 X10*3/uL [facility] Eosinophils Absolute Auto 0.0 0.0 - 0.4 X10*3/uL [facility] Basophils Absolute Auto 0.0 0.0 - 0.2 X10*3/uL [facility] NRBC Abs Auto 0.000 0.0 - 0.012 X10*3/uL [facility] 06/30/2024 10:2 9 AM EDT 06/30/2024 10:34 AM EDT us Generic External Data Provider LAB BLOOD ORDERAB LES Final Result [facility] [address] [place] [phone] * HCG, Qualitative, Urine (06/30/2024 10:29 AM EDT) Urine NEGATIVE NEGATIVE [facility] Comment:This test was develo ped to detect early . Falsenegative results may occur after the 5th - 7th week ofpregnancy when using this test method. If clinicallyindicated, consider a serum hCG. 06/30/2024 10:2 9 AM EDT 06/30/2024 10:34 AM EDT us Generic External Data Provider LAB URINE ORDERAB LES Final Result Performing Organization Address [facility]/ZIP Co de Phone Number [facility] [address] [place] [address] [phone] * Comprehensive Metabolic Panel (06/30/2024 10:29 AM EDT) Pathologist [facility] Sodium 142 135 - 145 mmol/L [facility] Potassium 3.9 3.3 - 5.1 mmol/L [facility] Chloride 107 96 - 108 mmol/L [facility] Carbon Dioxide 25 22 - 29 mmol/L [facility] Anion Gap 14 12 - 20 [facility] Urea Nitrogen (BUN) 15 9 - 16 mg/dL [facility] Creatinine, Serum 0.75 0.5 - 1.4 mg/dL [facility] Creatinine Clr Calc Pharmacy 86.3 [facility] Comment:Provided height and weight: 170.18 cm,62.2 kg.eGFR (calculated from the MDRD study equation) and eCrCl(calculated from the Cockcroft-Gault equation) are based ondifferent parameters and may not yield comparable results.If eCrCl result is absurd, please check patient'sheight/weight. Estimated Glomerular Filt Rate >60 [facility] Comment:Chronic Kidney Disea se: Estimated GFR < 60 mL/min/[id number] Kidney Disease: Estimated GFR < 15 mL/min/1.73m2 Glucose 95 60 - 115 mg/dL [facility] Calcium 10.2 8.4 - 10.2 mg/dL [facility] Bilirubin, Total 0.6 0.0 - 1.0 mg/dL [facility] Aspartate Amino Transferase 24 5 - 31 U/L [facility] Alanine Aminotransferase 25 0 - 31 U/L [facility] Total Protein 7.7 6.5 - 8.0 g/dL [facility] Albumin Level 4.6 3.5 - 5.0 g/dL [facility] Alkaline Phosphatase 57 39 - 117 U/L [facility] 06/30/2024 10:2 9 AM EDT 06/30/2024 10:34 AM EDT us Generic External Data Provider LAB BLOOD ORDERAB LES Final Result [facility] [address] [place] [phone] * (ABNORMAL) HPV DNA, Low/High Risk (06/06/2024 12:00 AM EDT) HPV High Risk Positive(A) Negative [facility] HPV Genotype 16 Negative Negative [facility] HPV Genotype 18 Negative Negative [facility] Comment:HPV testing performe d at [facility] (CLIA#[id number]), [address] [place] [address].Testing for HPV was performed using the Segundo JOSEPH 6800system. The presence of HPV in the female genital tract isassociated with a number of diseases, including cervicalcarcinoma. The HPV DNA high risk pool tests for HPV 31, 33,35, 39, 45, 51, 52, 56, 58, 59, 66 and 68. The testing forHPV 16 and 18 genotypes has also been performed. A positiveresult indicates detection of nucleic acid sequences fromone or more subtypes, whereas a negative result indicatessuch sequences were not detected. 06/06/2024 06/09/2024 7:0 0 AM EDT us Anuja Hua MD LAB BLOOD ORDERABLES Final Result [facility] [address] [place] [phone] [phone] * Pap Smear (06/06/2024 12:00 AM EDT) Swab 06/06/2024 06/09/2024 7:0 0 AM EDT Narrative [facility] - 06/11/2024 2:18 PM EDT ----- ------- Name: Lakesha Fernandes ? Age/Sex: 53/F ? : 1970 Unit#: [id number] ?? Attend Dr: Jeanna Hua,Anuja OSMAN ?Re06/06/24 ?Status: DEP REF ? Location: HO.HHCLNP ? Disch: ? ----- ------- SPEC : [id number] ? RECD: 06/09/24 ? STATUS: ??SOUT ? REQ NUM: [id number] ? DOREEN: 06/06/24-0000 ? SUBM DR: Anuja Borjas MD ? ENTERED: ??06/09/24 ?SP TYPE: Pap Smr ?OTHR DR: ? ORDERED: ??Pap Smear, PAP path review ? Interpretation ?? General Category: ?? Epithelial cell abnormality. ?? Adequacy: ?Endocervical component present. ?? Interpretation: ?Atypical squamous cells of undetermined significance. ? HPV High Risk: ??Positive ? HPV Genotyping 16: ??Negative ?? HPV Genotyping 18: ??Negative ?Clinical Information LMP:Unknown date Previous PAP test:Unknown date/findings ? Material Received ?? ThinPrep-Cervical ----- ------- Signed (signature on file) Paula Montano 06/11/24 1418 ? ----- ------- ? END OF REPORT ? Anuja Hua MD LAB CYTOLOGY ORDERABL ES Final Result Performing Organization Address [facility] Co de Phone Number [facility] [address] [place] [phone] * Influenza B (ID NOW Rapid Molecular) (04/23/2024 10:11 AM EST) Influenza B Negative Negative, Indeterminate [facility] Swab 04/23/2024 10:1 1 AM EST Yasir Maldonado MD POINT OF CARE TEST ENTER/EDIT OR DERABLES Final Result Performing Organization Address [facility] de Phone Number [facility] [address] [place] [phone] [phone] * Influenza A (ID NOW Rapid Molecular) (04/23/2024 10:11 AM EST) Influenza A Negative Negative, Indeterminate [facility] Swab 04/23/2024 10:1 1 AM EST us Yasir Maldonado MD POINT OF CARE TEST ENTER/EDIT OR DERABLES Final Result Performing Organization Address [facility] de Phone Number [facility] [address] [place] [address] [phone] * POCT Rapid COVID Ag (04/23/2024 10:11 AM EST) Pathologist [facility] Rapid COVID Ag Negative Swab 04/23/2024 10:1 1 AM EST us Yasir Name POINT OF CARE TEST ENTER/EDIT OR DERABLES Final Result * POCT rapid strep A manually resulted (04/23/2024 10:11 AM EST) [facility] Rapid Strep A Screen Negative Negative, None Detected Swab 04/23/2024 10:1 1 AM EST us Cooley Name POINT OF CARE TEST ENTER/EDIT OR DERABLES Final Result * US VENOUS DUPLEX LE LT (04/16/2024 9:00 AM EST) Anatomical Region Laterality Modality Abdomen Ultrasound 04/16/2024 9:00 AM EST Narrative 04/16/2024 9:47 AM EST ? [facility] ?[address] ?[place] [address] ? Ultrasound Report ? Signed ? Patient: Lakesha Fernandes ?MR#: [id number] ? : 1970 ?Acct:[id number] ? Age/Sex: 53 / F ?ADM Date: 04/16/24 ? Loc: HO.US ? Attending Dr: Srikanth Tay MD ? Ordering Physician: SRIKANTH TAY MD ?? Date of Service: 04/16/24 ?? Procedure(s): US venous duplex LE LT ?? Accession Number(s): [id number] ? cc: SRIKANTH TAY MD ? EXAMINATION: ?? US TRIPLEX LOWER EXTREMITY, LEFT ? CLINICAL INFORMATION: ?? Left leg pain. ? COMPARISON: ?? None available. ? TECHNIQUE: ?? Color-flow triplex imaging with spectral analysis and compression ?? Doppler were performed on the left lower extremity. ? FINDINGS: ?? Respiratory variation, normal compression and augmented flow are noted ?? throughout the left lower extremity. The visualized common femoral ?? vein, superficial femoral vein, profunda femoral vein, popliteal vein ?? and midcalf peroneal and posterior tibial venous segments show no ?? evidence of deep venous thrombosis. ? There is no Main's cyst. ? US/US venous duplex LE LT ?? IMPRESSION: ?? No evidence of deep venous thrombosis involving the left lower ?? extremity. ? Electronically signed by: ??Sajan Merchant MD ??04/16/2024 09:43 AM EST RP ? Dictated By: ?Sajan Merchant MD ? Signed By: ?<Electronically signed by Sajan Merchant MD in OV> ?04/16/24 0943 ? DD/ 0900 ? TD/TT: 04/16/24 0930 ? Director Of Collections: MSM ? Procedure Note Donotuseinterpreter, Image - 04/16/2024 [place] [id number] Ultrasound Report Signed Patient: Lakesha FernandesMR#: [id number] : 1970Acct:[id number] Age/Sex: 53 / FADM Date: 04/16/24 Loc: HO.US Attending Dr: Srikanth Tay MD Ordering Physician: SRIKANTH TAY MD Date of Service: 04/16/24 Procedure(s): US venous duplex LE LT Accession Number(s): [id number] cc: SRIKANTH TAY MD EXAMINATION: US TRIPLEX LOWER EXTREMITY, LEFT CLINICAL INFORMATION: Left leg pain. COMPARISON: None available. TECHNIQUE: Color-flow triplex imaging with spectral analysis and compression Doppler were performed on the left lower extremity. FINDINGS: Respiratory variation, normal compression and augmented flow are noted throughout the left lower extremity. The visualized common femoral vein, superficial femoral vein, profunda femoral vein, popliteal vein and midcalf peroneal and posterior tibial venous segments show no evidence of deep venous thrombosis. There is no Main's cyst. US/US venous duplex LE LT IMPRESSION: No evidence of deep venous thrombosis involving the left lower extremity. Electronically signed by: Sajan Merchant MD 04/16/2024 09:43 AM EST Dictated By: Sajan Merchant MD Signed By: <Electronically signed by Sajan Merchant MD in OV> 04/16/24942 DD/ 0900 TD/TT: 04/16/24 0930 Director Of Collections: MSM Srikanth Tay MD [facility] PROCEDURES Edited Result - Final * HEPATITIS C AB W/REFL TO HCV RNA, QN, PCR (07/28/2021 8:33 AM EDT) HEPATITIS C ANTIBODY NON-REACT DARRIUS NON-REACT DARRIUS [facility] INDEX 0.12 <1.00 [facility] Comment: ?? HCV antibody was non-reactive. There is no laboratory ?? evidence of HCV infection. ?? In most cases, no further action is required. However, if recent HCV exposure is suspected, a test for HCV RNA (test code 22238) is suggested. ?? For additional information please refer to http://[employer]SlapVid/faq/YGF74v0 (This link is being provided for informational/ educational purposes only.) ?? 07/28/2021 8:33 AM EDT Anuja Hua MD HISTORICAL/NON ORDERA BLE LABS Final Result [facility] [address] * HIV 1/2 ANTIGEN/ANTIBODY,FOURTH GENERATION W/RFL (07/28/2021 8:33 AM EDT) HIV-1/2 ANTIGEN AND ANTIBODIES, 4TH GENERATION W/ REFLEX NON-REACT DARRIUS NON-REACT DARRIUS [facility] Comment: HIV-1 antigen and HIV-1/HIV-2 antibodies were not detected. There is no laboratory evidence of HIV infection. ?? PLEASE NOTE: This information has been disclosed to you from records whose confidentiality may be protected by state law. ??If your state requires such protection, then the state law prohibits you from making any further disclosure of the information without the specific written consent of the person to whom it pertains, or as otherwise permitted by law. A general authorization for the release of medical or other information is NOT sufficient for this purpose. ? For additional information please refer to http://[employer]SlapVid/faq/MRU666 (This link is being provided for informational/ educational purposes only.) ? The performance of this assay has not been clinically validated in patients less than 2 years old. ?? 07/28/2021 8:33 AM EDT Anuja Hua MD LAB BLOOD ORDERABLES Final Result Performing Organization Address [facility]/ZIP Co de Phone Number [facility] [address] * (ABNORMAL) LIPID PANEL, STANDARD (07/28/2021 8:33 AM EDT) Chol/HDLC Ratio 4.9 <5.0 (calc) [facility] Cholesterol, Total 254(H) <200 mg/dL [facility] HDL Cholesterol 52 > OR = 50 mg/dL [facility] LDL Cholesterol 181(H) mg/dL (calc) [facility] Comment: Reference range: <100 ?? Desirable range <100 mg/dL for primary prevention; ?? <70 mg/dL for patients with CHD or diabetic patients ?? with > or = 2 CHD risk factors. ?? LDL-C is now calculated using the Reji-Oh ?? calculation, which is a validated novel method providing ?? better accuracy than the Friedewald equation in the ?? estimation of LDL-C. ?? Reji BERRIOS et al. MARCELLUS. 2013;310(19): 5382-0779 ?? (http://education.Need[employer]/faq/RNS871) Non-HDL Cholesterol 202(H) <130 mg/dL (calc) [facility] Comment: For patients with diabetes plus 1 major ASCVD risk ?? factor, treating to a non-HDL-C goal of <100 mg/dL ?? (LDL-C of <70 mg/dL) is considered a therapeutic ?? option. Triglycerides 94 <150 mg/dL [facility] 07/28/2021 8:33 AM EDT Anuja Hua MD LAB BLOOD ORDERABLES Final Result Performing Organization Address [facility]/ZIP Co de Phone Number [facility] [address] from Last 3 Months or Most Recently Relevant to Health Maintenance Insurance Care Teams Gaming Director Relationship Specialty Start Date End Date Anuja Borjas MD [address] [place] [phone] PCP - General Family Medicine 01/19/21
--- OUTSIDE RECORDS SUMMARY | 2024-06-30 11:08 | XMS_ITS | Encounter Summary ---
Author Organization [employer] Address [address] [place] [address] Care Team Providers Care Material Handler Loader Name Role Phone Anuja Borjas MD Primary Care Provide r Reason for Visit * Reason Onset Date Comments Durable Medical Equipment 06/11/2024 Encounter Details Date Type Department Care Team ([facility] st Contact Info) Description 06/11/2024 Telephone [facility] [address] [place], [place] [phone] Anuja Borjas MD [address] [place], [place] [phone] Durable Medical Equipment Social History Tobacco Use Types Packs/Day Years Used Date Smoking Tobacco: Never Passive Smoke Exposure: Never Smokeless Tobacco: Never Alcohol Use Standard Drinks/Week Comments Never 0 (1 standard drink = 0.6 oz pur e alcohol) Depression Answer Date Recorded Patient Health Questionnaire-9 Score 18 10/02/2023 Patient Health Questionnaire-9 Score 18 10/02/2023 Last PHQ-9: Questionnaire Data Not on file 0 10/02/2023 Housing Stability Answer Date Recorded What is your housing situation today? I have galacris recio 10/02/[address] you [...] AM EDT documented as of this encounter Miscellaneous Notes * Telephone Encounter - Jennie Owen - 06/11/2024 10:02 AM EDT TC from pt requesting status on DME for shower chair and a walker with seat . Status discuss on last visit. documented in this encounter Plan of Treatment Upcoming Encounters Date Type Department Care Team (Late st Contact Info) Description 07/29/2024 2:45 PM EDT Office Visit [facility] [address] [place] [address] Anuja Borjas MD [address] [place] [address] documented as of this encounter Visit Diagnoses Not on filedocumented in this encounter Additional Health Concerns Assessment Noted Time PHQ-9 Depression Total Score: 18 024 11:29 AM EDT documented as of this encounter Care Teams Material Handler Loader Relationship Specialty Start Date End Date Anuja Borjas MD [address] [place] [phone] PCP - General Family Medicine 01/19/21 documented as of this encounter
--- OUTSIDE RECORDS SUMMARY | 2024-06-30 11:08 | XMS_ITS | Encounter Summary ---
Author Organization [employer] Address [address] [place] [address] Care Team Providers Care Counseling Center Manager Name Role Phone Anuja Borjas MD Primary Care Provide r Encounter Details Date Type Department Care Team (Late st Contact Info) Description 06/30/2024 Orders Only GENERIC EXTERNAL DATA DEPARTMENT Provider, Generic External Data Social History Tobacco Use Types Packs/Day Years [...] Description 07/29/2024 2:45 PM EDT Office Visit [facility] [address] [place], [place] [phone] Anuja Borjas MD [address] [place], [place] [phone] documented as of this encounter Procedures Procedure Name Priority Date/Time Associated Diagnosis Comments HIGH SENSITIVITY TROPONIN I Routine 06/30/2024 10:29 AM EDT URINALYSIS, COMPLETE, WITH REFLEX TO CULTURE Routine 06/30/2024 10:29 AM EDT CBC WITH AUTO DIFFERENTIAL Routine 06/30/2024 10:29 AM EDT HCG, QL, URINE Routine 06/30/2024 10:29 AM EDT COMPREHENSIVE METABOLIC PANEL Routine 06/30/2024 10:29 AM EDT documented in this encounter Results * High Sensitivity Troponin I (06/30/2024 10:29 AM EDT) TROPONIN I HIGH SENSITIVITY <2.7 <3.5 - 17.0 ng/L [facility] Comment:The Arora high sens itivity Troponin-I results should beused in conjunction with other diagnostic information suchas ECG, clinical observations and information, and patientsymptoms to aid in the diagnosis of [place]. 06/30/2024 10:2 9 AM EDT 06/30/2024 10:34 AM EDT us Generic External Data Provider LAB BLOOD ORDERAB LES Final Result [facility] [address] [place] [phone] [phone] * Comprehensive Metabolic Panel (06/30/2024 10:29 AM EDT) Sodium 142 135 - 145 mmol/L [facility] Potassium 3.9 3.3 - 5.1 mmol/L [facility] Chloride 107 96 - 108 mmol/L [facility] Carbon Dioxide 25 22 - 29 mmol/L [facility] Anion Gap 14 12 - 20 [facility] Urea Nitrogen (BUN) 15 9 - 16 mg/dL [facility] Creatinine, Serum 0.75 0.5 - 1.4 mg/dL [facility] Creatinine Clr Calc Pharmacy 86.3 [facility] Comment:Provided height and weight: 170.18 cm,62.2 kg.eGFR (calculated from the MDRD study equation) and eCrCl(calculated from the Cockcroft-Gault equation) are based ondifferent parameters and may not yield comparable results.If eCrCl result is absurd, please check patient'sheight/weight. Estimated Glomerular Filt Rate >60 [facility] Comment:Chronic Kidney Disea se: Estimated GFR < 60 mL/min/1.37l9Gveore Kidney Disease: Estimated GFR < 15 mL/min/1.73m2 Glucose 95 60 - 115 mg/dL [facility] Calcium 10.2 8.4 - 10.2 mg/dL [facility] Bilirubin, Total 0.6 0.0 - 1.0 mg/dL [facility] Aspartate Amino Transferase 24 5 - 31 U/L [facility] Alanine Aminotransferase 25 0 - 31 U/L [facility] Total Protein 7.7 6.5 - 8.0 g/dL [facility] Albumin Level 4.6 3.5 - 5.0 g/dL [facility] Alkaline Phosphatase 57 39 - 117 U/L [facility] 06/30/2024 10:2 9 AM EDT 06/30/2024 10:34 AM EDT us Generic External Data Provider LAB BLOOD ORDERAB LES Final Result Performing Organization Address [facility] Co de Phone Number [facility] [address] [place] [phone] * HCG, Qualitative, Urine (06/30/2024 10:29 AM EDT) Urine NEGATIVE NEGATIVE [facility] Comment:This test was develo ped to detect early . Falsenegative results may occur after the 5th - 7th week ofpregnancy when using this test method. If clinicallyindicated, consider a serum hCG. 06/30/2024 10:2 9 AM EDT 06/30/2024 10:34 AM EDT Generic External Data Provider LAB URINE ORDERAB LES Final Result Performing Organization Address [facility] de Phone Number [facility] [address] [place] [phone] * (ABNORMAL) Urinalysis, Complete, with Reflex to Culture (06/30/2024 10:29 AM EDT) Color Urine Yellow [facility] Appearance Urine Cloudy [facility] PH 6.0 5.0 - 9.0 [facility] Glucose Urine UA Negative Negative mg/dL [facility] Urine Blood Trace Negative [facility] Specific [place] - Urine 1.025 1.005 - 1.025 [facility] Urine Protein Negative Neg-Trace mg/dL [facility] Urine Ketones 15 Negative mg/dL [facility] Nitrite Urine Negative Negative [facility] Leukocyte Esterase Urine Trace(A) Negative [facility] RBC Urine 3-5(A) 0 - 2 /HPF [facility] Urine WBC 0-5 0 - 5 /HPF [facility] Urine Squamous Epithelial Cell 3-5 0 - 2 /HPF [facility] Urine Bacteria 4+ None Seen [facility] Hyaline Casts, Urine 0-2 0 - 2 /LPF [facility] 06/30/2024 10:2 9 AM EDT 06/30/2024 10:34 AM EDT Narrative [facility] - 06/30/2024 10:48 AM EDT [id number], Clean Catch us Generic External Data Provider LAB URINE ORDERAB LES Final Result [facility] [address] [place] [phone] * (ABNORMAL) CBC auto differential (06/30/2024 10:29 AM EDT) White Blood Count 9.0 4.8 - 10.8 X10*3/uL [facility] Red Blood Count 4.38 4.20 - 5.50 X10*6/uL [facility] Hemoglobin 12.2 12.0 - 16.0 g/dl [facility] Hematocrit 37.4 37.0 - 47.0 % [facility] Mean Corpuscular Volume 85.4 80.0 - 98.0 fL [facility] Mean Corpuscular Hemoglobin 27.9 27.0 - 33.0 pg [facility] Mean Corpuscular HGB Conc 32.6 31.0 - 35.0 g/dl [facility] Red Cell Distribution Width 14.1 11.0 - 16.0 % [facility] Platelet Count 317 160 - 400 X10*3/uL [facility] Mean Platelet Volume 9.5 9.4 - 12.3 fL [facility] Neutrophils Percent Auto 75.0(H) 45 - 73 % [facility] Imm Gran Pct Auto 0.2 0.0 - 0.4 % [facility] Lymphocytes Percent Auto 19.3(L) 20 - 40 % [facility] Monocytes Percent Auto 5.2 2 - 11 % [facility] Eosinophils Percent Auto 0.1 0 - 4 % [facility] Basophils Percent Auto 0.2 0 - 2 % [facility] NRBC Pct Auto 0.0 0.0 - 0.2 /100WBC [facility] Neutrophils Absolute Auto 6.7 2.0 - 8.3 x10*3/uL [facility] Imm Gran Abs Auto 0.02 0.00 - 0.03 X10*3/uL [facility] Lymphocytes Absolute Auto 1.7 1.2 - 4.9 X10*3/uL [facility] Monocytes Absolute Auto 0.5 0.1 - 1.2 X10*3/uL [facility] Eosinophils Absolute Auto 0.0 0.0 - 0.4 X10*3/uL [facility] Basophils Absolute Auto 0.0 0.0 - 0.2 X10*3/uL [facility] NRBC Abs Auto 0.000 0.0 - 0.012 X10*3/uL [facility] 06/30/2024 10:2 9 AM EDT 06/30/2024 10:34 AM EDT us Generic External Data Provider LAB BLOOD ORDERAB LES Final Result Performing Organization Address City/State/[facility] Co de Phone Number [facility] [address] [place] [phone] [phone] documented in this encounter Visit Diagnoses Not on filedocumented in this encounter Additional Health Concerns Assessment Noted Time PHQ-9 Depression Total Score: 18 024 11:29 AM EDT documented as of this encounter Care Teams Counseling Center Manager Relationship Specialty Start Date End Date Anuja Borjas MD [address] [place] [phone] PCP - General Family Medicine 01/19/21 documented as of this encounter
--- OUTSIDE RECORDS SUMMARY | 2024-06-30 11:08 | XMS_ITS | Encounter Summary ---
Author Organization [employer] Address [address] [facility] [address] [place] [address] Care Team Providers Care Archival Studies Professor Name Role Phone Anuja Borjas MD Primary Care Provide r Encounter Details Date Type Department Care Team (Late Contact Info) Description 06/20/2022 Orders Only [facility] [address] [place], [place] [phone] Karina Higginbotham LPN Social History Tobacco Use Types Packs/Day Years [...] Description 07/29/2024 2:45 PM EDT Office Visit [facility] [address] [place] [address] Anuja Borjas MD [address] [place], [place] [phone] documented as of this encounter Visit Diagnoses Not on filedocumented in this encounter Care Teams Archival Studies Professor Relationship Specialty Start Date End Date Anuja Borjas MD [address] [place] [phone] PCP - General Family Medicine 01/19/21 documented as of this encounter
--- OUTSIDE RECORDS SUMMARY | 2024-06-30 11:08 | XMS_ITS | Encounter Summary ---
Author Organization [facility] Address [address] [facility] [address] [place] [address] Care Team Providers Care Hot Tamale Worker Name Role Phone Anuja Borjas MD Primary Care Provide r Encounter Details Date Type Department Care Team (Late Contact Info) Description 10/06/2022 Orders Only [facility] [address] [place] [address] [phone] Donna Ritchie RN [address] [place] [address] [phone] Social History Tobacco Use Types Packs/Day Years [...] EDT Office Visit [facility] [address] [place] [address] [phone] Anuja Borjas MD [address] [place], [place] [phone] documented as of this encounter Procedures Procedure Name Priority Date/Time Associated Diagnosis Comments HM PAP/HPV Routine 04/03/2019 12:00 AM EST documented in this encounter Results * Hm Pap Smear (04/03/2019 12:00 AM EST) us Anuja Hua MD HEALTH MAINTENANCE Fi nal Result [facility] [address] [place] [phone] documented in this encounter Visit Diagnoses Not on filedocumented in this encounter Care Teams Hot Tamale Worker Relationship Specialty Start Date End Date Anuja Bojras MD [address] [place] [phone] PCP - General Family Medicine 01/19/21 documented as of this encounter
--- OUTSIDE RECORDS SUMMARY | 2024-06-30 11:08 | XMS_ITS | Encounter Summary ---
Author Organization [employer] Address [address] [facility] [address] [place] [address] Care Team Providers Care Environmental Services Attendant Name Role Phone Anuja Borjas MD Primary Care Provide r Encounter Details Date Type Department Care Team (Late st Contact Info) Description 05/22/2023 Telephone [facility] MEDICINE [address] [place] [address] [phone] Anuja Borjas MD [address] [place] [address] [phone] Social History Tobacco Use Types Packs/Day Years Used Date Smoking Tobacco: Never Smokeless Tobacco: Never Alcohol Use Standard Drinks/Week Comments Never 0 (1 standard drink = 0.6 oz pur e alcohol) Depression Answer Date Recorded Patient Health Questionnaire-9 Score 13 12/27/2022 Patient Health Questionnaire-9 Score 13 12/27/2022 Last PHQ-9: Questionnaire Data Not on file 1 Depression Answer Date Recorded Patient Health Questionnaire-2 Score 6 12/27/2022 Comments Unknown Sex and Gender Information Value [...] Description 07/29/2024 2:45 PM EDT Office Visit [facility] MEDICINE [address] [place] [phone] Anuja Borjas MD [address] [place] [address] documented as of this encounter Visit Diagnoses Not on filedocumented in this encounter Additional Health Concerns Assessment Noted Time PHQ-9 Depression Total Score: 13 023 9:13 AM EDT documented as of this encounter Care Teams Environmental Services Attendant Relationship Specialty Start Date End Date Anuja Borjas MD [address] [place] [address] PCP - General Family Medicine 01/19/21 documented as of this encounter
[2024-06-30] MEDS: Acetaminophen 325 MG TABLET 975 MG PO (11:39)
[2024-06-30 11:46] VITALS: BP 138/67; PULSE 68; RESP 18; TEMP 36.7; O2SAT 97
== END 2024-06-30 11:48 | disposition home or self-care (01) ==
PROVIDERS: Emergency Provider Emergency Medicine; PCP Internal Medicine
DX: R07.89 Other chest pain (principal); F41.9 Anxiety disorder, unspecified; E11.9 Type 2 diabetes mellitus without complications; I10 Essential (primary) hypertension; Z79.899 Other long term (current) drug therapy
CPT/HCPCS: 36415; 80053; 81001; 81025; 84484; 85025; 93005; 99283; 99285

== ENCOUNTER → 2024-06-30 09:59 | Outpatient (BNV) | payer MEDICAID, SELFPAY | PROVIDERS: Emergency Provider Emergency Medicine; PCP Internal Medicine; Visit Provider Internal Medicine | DX: R94.31 Abnormal electrocardiogram [ECG] [EKG] (principal); R07.9 Chest pain, unspecified | CPT/HCPCS: 93010 ==

== ENCOUNTER 2024-07-31 14:00 | Outpatient (REF) | payer MEDICAID, SELFPAY ==
--- NOTE | ~2024-07-31 | XR_ITS ---
EXAMINATION: XR CHEST CLINICAL INFORMATION: chest tightness COMPARISON: February 08, 2023. TECHNIQUE: 2 views of the chest were obtained. FINDINGS: No consolidation, pleural effusion or pneumothorax. Cardiomediastinal silhouette size is normal. Osseous structures are grossly intact. Mild S-shaped curvature of the thoracolumbar spine.. XR/XR chest 2V IMPRESSION: No acute airspace disease. Electronically signed by: Mat Barry MD 07/31/2024 03:37 PM EDT
--- OUTSIDE RECORDS SUMMARY | 2024-07-31 14:08 | XMS_ITS | Encounter Summary ---
Author Organization [email or web address] Address [address] [facility] [address] [place] [address] Care Team Providers Care Sales Support Representative Name Role Phone Anuja Borjas MD Primary Care Provide r Encounter Details Date Type Department Care Team (Late st Contact Info) Description 10/06/2022 Orders Only [facility] MEDICINE [address] [place] [address] Donna Ritchie RN [address] [place] [address] Social History Tobacco Use Types Packs/Day Years [...] as of this encounter Plan of Treatment Not on file documented as of this encounter Procedures Procedure Name Priority Date/Time Associated Diagnosis Comments HM PAP/HPV Routine 04/03/2019 12:00 AM EST documented in this encounter Results * Hm Pap Smear (04/03/2019 12:00 AM EST) us Anuja Hua MD HEALTH MAINTENANCE Fi nal Result [facility] [address] [place] [address] [phone] documented in this encounter Visit Diagnoses Not on filedocumented in this encounter Care Teams Sales Support Representative Relationship Specialty Start Date End Date Anuja Borjas MD [address] [place] [phone] PCP - General Family Medicine 01/19/21 documented as of this encounter
== END 2024-07-31 14:01 | disposition home or self-care (01) ==
LOC: HO.HHCX 14:00
PROVIDERS: Visit Provider Family Medicine
DX: J45.31 Mild persistent asthma with (acute) exacerbation (principal)
CPT/HCPCS: 71046

== ENCOUNTER → 2024-07-31 14:01 | Outpatient (BNV) | payer MEDICAID, SELFPAY | PROVIDERS: Visit Provider Radiology Diagnostic Radiology | DX: R07.89 Other chest pain (principal) | CPT/HCPCS: 71046 ==

== ENCOUNTER 2024-09-13 20:17 | Emergency (ER) | payer MEDICAID, SELFPAY ==
--- NOTE | ~2024-09-13 | XR_ITS ---
CLINICAL HISTORY: pain, injury Right ankle 3 views Comparison: None provided Findings: No acute fracture or dislocation identified. No acute focal bony abnormality. No radiopaque foreign body noted. Impression: No acute bony abnormality This document has been electronically signed by: Philip Ghosh MD on 09/13/2024 21:13:47
--- NOTE | 2024-09-13 20:32 | ED_ITS ---
HPI - General Adult General Chief complaint: Extremity Injury, Lower Stated complaint: right ankle pain Time Seen by Provider: 09/13/24 22:06 Source: patient Limitations: no limitations History of Present Illness ED Provider: Yamile Walters PA-C HPI narrative: 53-year-old female with the underlying mental disability, asthma, who presents with right ankle pain. Patient states she stepped-down from a stool, landed incorrectly, now with right lateral ankle pain. Limited flexion and extension secondary to pain. Related Data Previous Rx's ?Medication ?Instructions ?Recorded oxybutynin chloride 10 mg 10 mg PO DAILY #30 tabs 03/13 05/02 tablet,extended release 24 hr famotidine 20 mg tablet (Pepcid) 20 mg PO DAILY PRN ab dominal 07/26/20 discomfort #30 tabs ondansetron 4 mg disintegrating 4 mg PO Q8H PRN nausea and 07/26/20 tablet vomiting #20 tabs acetaminophen 500 mg tablet 1,000 mg (2 x 500 mg) PO Q ID PRN 11/09/20 pain #30 tabs cephalexin 500 mg tablet 500 mg PO QID 7 days #28 tab s 11/09/20 oxycodone 5 mg tablet 5 mg PO Q6H PRN pain #10 tab s 11/09/20 silver sulfadiazine 1 % topical 1 appl topical BID 7 d ays #50 grams 11/09/20 cream (Silvadene) hydrocodone 5 mg-acetaminophen 325 1 tab PO Q6H PRN pa in #8 tabs 06/22/21 mg tablet cefdinir 300 mg capsule 300 mg PO BID 7 days #14 cap s 03/18/22 cephalexin 500 mg capsule 500 mg PO BID #14 caps 01/05 acetaminophen 500 mg capsule 1,000 mg (2 x 500 mg) PO Q8H PRN 06/30/24 fever or pain #14 caps Allergies Allergy/AdvReac Type Severity Reaction Status Date / Time aspirin (ASPIRIN) Allergy Unknown UNKNOWN Verified 09/13/24 20:37 ibuprofen (IBUPROFEN) Allergy Unknown NAUSEA & Verified 09/13/24 20:37 VOMITING citalopram AdvReac Unknown sleepiness Verified 09/13/24 20:37 Review of Systems Review of Systems: Yes all other systems are reviewed and are negative Constitutional: Constitutional: Denies fatigue and Denies fever(s) Musculoskeletal: Musculoskeletal: Reports arthralgias and Reports joint swelling Endocrine: Endocrine: Denies fatigue [facility] Past Medical History Attestation statement: The following information was validated with the patient. Medical History (Updated 09/13/24 @ 22:58 by PALMIRA Richards) Other chest pain SOB (shortness of breath) on exertion GERD (gastroesophageal reflux disease) Bilateral leg pain Unstable gait Essential (primary) hypertension Seasonal allergies Vitamin D deficiency Urinary incontinence Thrombosed external hemorrhoids Seizure disorder Mild intermittent asthma Migraine without aura, not refractory Intellectual disability Fibroadenoma Constipation Chronic low back pain History of seizures Mental disability Asthma IgA nephropathy Depression Anxiety Urgency of micturition Urge incontinence Lumbar facet arthropathy Kidney disease Surgical History (System 03/04/24 @ 13:33 by Vee Gorman) S/P excision of fibroadenoma of breast Family History Family History Father No problems noted. Mother Hypertension Stroke Social History Social History (System 03/04/24 @ 13:33 by Vee Gorman) Alcohol intake: never Patient Tobacco Use Status: Never used Tobacco Advance Directives: No Advance Directives Information Provided: No Do you have a plan to hurt others: No Plan Physical Exam ED Vital Signs: Vital Signs - 24 hr 09/13/24 20:36 Temperature 97.9 F Pulse Rate 86 Respiratory Rate 16 Blood Pressure 125/81 Pulse Oximetry 99 Oxygen Delivery Method Room Air BMI result Body Mass Index 22.7 Const Other: Alert Orientation/consciousness: patient oriented x3 Resp Effort & Inspection: normal respiratory effort Cardio Other: Normal peripheral perfusion Skin Other: Warm dry no rash Neuro General: patient oriented x3, no focal motor deficits and CN's II-XI intact bilaterally Extrem Other: Mild swelling noted along lateral right ankle, no ecchymosis, able to flex and extend to some degree Psych Other: Cooperative Course Course Course Narrative: RME performed by Yolette Soares PA-C. Patient is a 53 year old assigned female at presenting to the emergency department with right ankle swelling after cutting the inner portion of the right foot. Detailed physical exam and review of systems are deferred to the boat outboard engine mechanic. Imaging ordered. P atient placed back in the waiting room pending room availability and results. Medications Administered Discontinued Medications Generic Name Dose Route Start Last Admin Trade Name Freq PRN Reason Stop Dose Admin Acetaminophen 975 mg 09/13/24 22:18 09/13/24 22:28 Acetaminophen 325 Mg Tablet PO 09/13/24 22:19 975 mg ONCE ONE Administration Medical Decision Making Medical Decision Making MDM Narrative: 53-year-old female with the underlying mental disability, asthma, who presents with right ankle pain. Patient states she stepped-down from a stool, landed incorrectly, now with right lateral ankle pain. Limited flexion and extension secondary to pain. No relevant chronic issues History: Per patient I have considered the following differential diagnoses: Fracture, dislocation, sprain, contusion Plan: X-ray obtained from triage, there was no fracture or dislocation. We will place the patient in an Aircast send with crutches and send with home care instructions for sprain. Giving Tylenol for her discomfort. I have independently reviewed the following tests: X-ray right ankle:Findings: No acute fracture or dislocation identified. No acute focal bony abnormality. No radiopaque foreign body noted. Impression: No acute bony abnormality Discharge Plan Discharge Clinical Impression: Right ankle sprain Patient Disposition: Home, Self-Care Instructions: Ankle Sprain (ED), Ankle Stirrup Splint (ED), Crutch Instructions (ED), P.R.I.C.E. Treatment (ED) Additional Instructions: The x-ray was negative for fracture or dislocation, you are being treated for sprain. See home care instructions. You can use [id number] Tylenol 1000 mg taken every 8 hours with food for pain. Follow up with your primary care provider as needed. Prescriptions: No Action famotidine [Pepcid] 20 mg tablet 20 mg PO DAILY PRN (Reason: abdominal discomfort) Qty: 30 0RF ondansetron 4 mg tablet,disintegrating 4 mg PO Q8H PRN (Reason: nausea and vomiting) Qty: 20 0RF silver sulfadiazine [Silvadene] 1 % cream 1 appl topical BID 7 Days Qty: 50 0RF Rx Instructions: apply a 1.5 mm thickness cephalexin 500 mg tablet 500 mg PO QID 7 Days Qty: 28 0RF oxycodone 5 mg tablet 5 mg PO Q6H PRN (Reason: pain) Qty: 10 0RF Rx Instructions: Narcotic, no driving for 6 hours after taking acetaminophen 500 mg tablet 1,000 mg PO QID PRN (Reason: pain) Qty: 30 0RF hydrocodone-acetaminophen 5-325 mg tablet 1 tab PO Q6H PRN (Reason: pain) Qty: 8 0RF cefdinir 300 mg capsule 300 mg PO BID 7 Days Qty: 14 0RF cephalexin 500 mg capsule 500 mg PO BID Qty: 14 0RF acetaminophen 500 mg capsule 1,000 mg PO Q8H PRN (Reason: fever or pain) Qty: 14 0RF oxybutynin chloride 10 mg tablet extended release 24hr 10 mg PO DAILY Qty: 30 6RF Print Language: Belarusian
[2024-09-13 20:36] VITALS: BP 125/81; PULSE 86; RESP 16; TEMP 36.6; O2SAT 99; BMI 22.7
[2024-09-13 23:05] VITALS: BP 125/81; PULSE 86; RESP 16; TEMP 36.6; O2SAT 99
== END 2024-09-13 23:06 | disposition home or self-care (01) ==
PROVIDERS: Emergency Provider Emergency Medicine; PCP Internal Medicine
DX: S93.401A Sprain of unspecified ligament of right ankle, initial encounter (principal); M25.571 Pain in right ankle and joints of right foot; W08.XXXA Fall from other furniture, initial encounter; Y93.9 Activity, unspecified; Y92.89 Other specified places as the place of occurrence of the external cause; Y99.9 Unspecified external cause status
CPT/HCPCS: 73610; 99283

== ENCOUNTER → 2024-09-13 20:34 | Outpatient (BNV) | payer MEDICAID, SELFPAY | PROVIDERS: PCP Internal Medicine; Visit Provider Radiology Diagnostic Radiology | DX: M25.571 Pain in right ankle and joints of right foot (principal) | CPT/HCPCS: 73610 ==

== ENCOUNTER 2024-09-29 10:08 | Outpatient (REF) | payer MEDICAID, SELFPAY ==
[2024-09-29 11:59] LABS: Cholesterol 225 mg/dL (<200); HDL Cholesterol 49 mg/dL (>40); Triglycerides 88 mg/dL (<150)
== END 2024-09-29 10:09 | disposition home or self-care (01) ==
LOC: HO.HHCL 10:08
PROVIDERS: PCP Internal Medicine; Visit Provider Internal Medicine
DX: Z00.00 Encounter for general adult medical examination without abnormal findings (principal); G40.909 Epilepsy, unspecified, not intractable, without status epilepticus
CPT/HCPCS: 36415; 80061; 80164

== ENCOUNTER 2024-10-01 11:28 | Outpatient (REF) | payer MEDICAID, SELFPAY ==
--- NOTE | ~2024-10-01 | XR_ITS ---
EXAMINATION: XR LUMBOSACRAL SPINE CLINICAL INFORMATION: fell 2 days ago, injured upper lumbar area COMPARISON: November 2016 TECHNIQUE: Three views of the lumbosacral spine. FINDINGS: There are 5 nonrib-bearing lumbar segments. Vertebral body height and alignment is unchanged from the prior. There is persistent disc space narrowing, mild, and anterior osteophytes at T12-L1. L1-2: Stable mild disc space narrowing is noted. L3-4: Stable subtle retrolisthesis is present. There is a new small marginal osteophytes involving the anterior superior L4. XR/XR lumbar spine 2-3V IMPRESSION: No sign of fracture. Stable slightly increased mild multilevel degenerative changes. Electronically signed by: Chidi Beth MD 10/01/2024 12:27 PM EDT
== END 2024-10-01 11:29 | disposition home or self-care (01) ==
LOC: HO.HHCX 11:28
PROVIDERS: Visit Provider Emergency Medicine
DX: M54.50 Low back pain, unspecified (principal); S39.92XA Unspecified injury of lower back, initial encounter
CPT/HCPCS: 72100

== ENCOUNTER → 2024-10-01 11:28 | Outpatient (BNV) | payer MEDICAID, SELFPAY | PROVIDERS: Visit Provider Radiology Diagnostic Radiology | DX: M54.50 Low back pain, unspecified (principal) | CPT/HCPCS: 72100 ==